=== PATIENT | female | born 1940 | race Caucasian/White ===

== ENCOUNTER 2017-11-03 14:21 | Inpatient (IN) ==
--- NOTE | 2017-11-02 16:29 | Discharge Summary ---
<Irina Tian E - Last Filed: 11/02/17 16:19> Date of Encounter: 11/02/17 - Discharge Diagnosis (1) Arthritis of left knee Priority: Primary Status: Chronic (2) Status post total left knee replacement Priority: Primary Status: Acute (3) Obesity Priority: Secondary Status: Chronic Qualifiers: Obesity type: unspecified obesity type Obesity classification: unspecified obesity classification Serious obesity comorbidity presence: unspecified whether serious comorbidity present Qualified Code(s): E66.9 - Obesity, unspecified (4) HLD (hyperlipidemia) Priority: Secondary Status: Chronic Qualifiers: Hyperlipidemia type: unspecified Qualified Code(s): E78.5 - Hyperlipidemia , unspecified (5) GERD (gastroesophageal reflux disease) Priority: Secondary Status: Chronic Qualifiers: Esophagitis presence: esophagitis presence not specified Qualified Code(s) : K21.9 - Gastro-esophageal reflux disease without esophagitis (6) Fibromyalgia Priority: Secondary Status: Chronic (7) Hypothyroidism Priority: Secondary Status: Chronic Qualifiers: Hypothyroidism type: unspecified Qualified Code(s): E03.9 - Hypothyroidism , unspecified (8) COPD (chronic obstructive pulmonary disease) Priority: Secondary Status: Chronic Qualifiers: COPD type: unspecified COPD Qualified Code(s): J44.9 - Chronic obstructive pulmonary disease, unspecified (9) ZORA (obstructive sleep apnea) Priority: Secondary Status: Chronic (10) HTN (hypertension) Priority: Secondary Status: Chronic Qualifiers: Hypertension type: unspecified Qualified Code(s): I10 - Essential (primary ) hypertension (11) History of breast cancer Priority: Secondary Status: Chronic - Hospital Course Hospital course: Ms. Ramos is a 77 year old female - Time Spent with Patient Total time spent providing and/or coordinating discharge services: - Discharge Medications Home Medications: Amitriptyline [Elavil] 10 mg PO HS 10/30/16 [History] Budesonide/Formoterol 160/4.5 [Symbicort 160/4.5] 2 puff IH BID 10/30/16 [ History] Cholecalciferol (Vitamin D3) [Vitamin D3] 2,000 unit PO BID 10/30/16 [History] Duloxetine HCl [Cymbalta] 60 mg PO DAILY 10/30/16 [History] Gabapentin [Neurontin] 300 mg PO BID 10/30/16 [History] Levothyroxine Sodium [Levoxyl] 75 mcg PO Q48H 10/30/16 [History] Losartan [Cozaar] 25 mg PO DAILY 10/30/16 [History] Omeprazole [PriLOSEC] 40 mg PO DAILY 10/30/16 [History] Aspirin Enteric Coated [Aspirin EC] 325 mg PO BID 10 Days #20 tablet. [Rx] OxyCODONE Immed Rel [Roxicodone 5 MG] 5 mg PO Q6HR PRN 7 Days #28 tablet [Rx] Calcium Carbonate [Calcium] 600 mg PO BID 11/03/17 [History] Donepezil [Aricept] 5 mg PO HS 11/03/17 [History] Levothyroxine [Synthroid] 50 mcg PO Q48H 11/03/17 [History] Lovastatin 40 mg PO HS 11/03/17 [History] Multivitamin [One Daily Multivitamin] 1 tab PO DAILY 11/03/17 [History] Allergies/Adverse Reactions: 3 Allergy/AdvReac Type Severity Reaction Status Date / Time clarithromycin [From Biaxin] AdvReac Nausea Verified 11/03/17 14:55 prednisone AdvReac Gastrointestinal Verified 11/03/17 14:55 Upset simvastatin AdvReac Cough Verified 11/03/17 14:55 Primary care physician: Jorge Luis Sharpe DO - Patient Status Disposition: Transfer Inpatient Rehab Fac Condition: Good - Discharge Instructions Follow Up With: Jorge Luis Sharpe DO [Primary Care Provider] - Additional Instructions: Discharge Instructions: Total Knee Replacement Please call [facility] ([phone]), your Primary Care Physician, or report to the Emergency Room if you have any of the following symptoms: Nausea, vomiting, fever greater that 101.5, swelling, chest pain, shortness of breath, increased pain/redness/drainage/odor for your incision site, numbness/ tingling, or any other concerning symptoms. ACTIVITY:Weight-bearing as tolerated. You may progress off support (crutches or walker) as tolerated. MEDICATIONS: Upon discharge resume your home medications. Take all the medications as prescribed. Take a stool softener if taking narcotic pain medications. Stool softeners are only effective if you drink enough fluids. Drink 6-8 glass of water or fluids a day, unless this is not allowed for another health problem. Despite using stool softeners, if you haven't had a bowel movement in 3 days, please switch to a gentle laxative. Gentle laxatives are sold over the counter. You should have a bowel movement within 24 hours, if not call the office. You will be discharged from the hospital with a prescription for pain medication. You are encouraged to decrease the use of narcotic pain medication as tolerated. Should you require a refill, please call the office. [facility] prescribes narcotic pain medication for only 4-6 weeks after surgery. If you require pain medication beyond this time period, you may be referred to your Primary Care Physician or to the Pain Clinic for further evaluation. Plan ahead for refills on pain medication as many narcotics either need to be picked up at the office or mailed. It is best to call 48-72 hours in advance of needing a prescription refill so you don't run out of medication. To help control the post-operative pain, you may take NSAIDs (Aleve,Advil, Motrin, Ibuprofen, Naprosyn) or Tylenol as prescribed on the bottle in addition to the pain medication. ANTICOAGULATION (blood thinners): Continue your Aspirin, Lovenox or Coumadin as prescribed to help prevent a blood clot in the leg or in the lungs. As long as your incision remains dry and you tolerate the NSAIDs (Aleve, Advil, Motrin, ibuprofen, naprosyn), it is OK to use the NSAIDS while you are taking your anticoagulation medication. Should your incision start to drain, stop the NSAID and contact our office. Common symptoms of blood clot in the legs include: localized pain, swelling, calf tenderness, redness or discoloration of the skin. Blood clot in the lung symptoms include: shortness of breath, rapid pulse, sweating, and chest pain that worsens with deep breathing, coughing up blood, lightheadedness, feelings of anxiety. If you experience any of these symptoms notify your physician immediately, go to the emergency room, or if having trouble breathing, call 911. WOUND CARE: Leave the dressing on for 7 to 10days. You may change the dressing if it becomes saturated greater than 50%. Do not get the dressing wet at anytime. Wash your hands with antibacterial soap, rinse and dry prior to any wound care. If you have william the visiting nurse or rehab facility can remove the stapes 10-14 days after surgery and place steri-strips across the wound. Leave the steri-strips in place until they fall off on their won. You may let water from the shower run on top of the steri-strips. If you do not have a visiting nurse or rehab facility, you will need to return to the office at 10-14 days for the william to be removed. If you have itching or redness around the dressing call the office. FOLLOW-UP: Please follow up with your surgeon in the orthopedic clinic in 4 weeks from the day of surgery. If you have william that need to be removed, you will need to come back to the office in 10-14 days from the day of surgery. <Franki Chapman - Last Filed: 11/06/17 08:48> Orders not resulted at time of discharge: Pending orders 11/03/17 01:00 XR knee LT limited 1-2V [XR] Routine Hemoglobin and Hematocrit [HEME] Routine Date of Encounter: 11/06/17 Time of Encounter: 08:40 - Discharge Diagnosis (1) Obesity (BMI 35.0-39.9 without comorbidity) Priority: Secondary Status: Chronic (2) Bilateral sacroiliitis Priority: Secondary Status: Chronic (3) Arthritis of left knee Priority: Primary Status: Chronic (4) Status post total left knee replacement Priority: Primary Status: Acute (5) HLD (hyperlipidemia) Priority: Secondary Status: Chronic Qualifiers: Hyperlipidemia type: unspecified Qualified Code(s): E78.5 - Hyperlipidemia , unspecified (6) GERD (gastroesophageal reflux disease) Priority: Secondary Status: Chronic Qualifiers: Esophagitis presence: esophagitis presence not specified Qualified Code(s) : K21.9 - Gastro-esophageal reflux disease without esophagitis (7) Fibromyalgia Priority: Secondary Status: Chronic (8) Hypothyroidism Priority: Secondary Status: Chronic Qualifiers: Hypothyroidism type: unspecified Qualified Code(s): E03.9 - Hypothyroidism , unspecified (9) COPD (chronic obstructive pulmonary disease) Priority: Secondary Status: Chronic Qualifiers: COPD type: unspecified COPD Qualified Code(s): J44.9 - Chronic obstructive pulmonary disease, unspecified (10) ZORA (obstructive sleep apnea) Priority: Secondary Status: Chronic (11) HTN (hypertension) Priority: Secondary Status: Chronic Qualifiers: Hypertension type: unspecified Qualified Code(s): I10 - Essential (primary ) hypertension (12) History of breast cancer Priority: Secondary Status: Chronic (13) Tachycardia Priority: Primary Status: Acute - Hospital Course Hospital course: Ms. Ramos is a 77 year old female Status post left total knee replacement, patient evaluated for postoperative tachycardia started on Lopressor by cardiology. The patient had an uneventful postoperative course. They received antibiotics and physical therapy and were discharged in stable condition. There will follow -up in the office in 2 weeks. - Time Spent with Patient Total time spent providing and/or coordinating discharge services: Primary care physician: Jorge Luis Sharpe DO - Patient Status Functional capacity at discharge: uses cane/walker Overall status at discharge: patient is progressing back to baseline
--- NOTE | 2017-11-02 16:36 | Physician Discharge Referral ---
ExtendedCare Referral Info Transfer To: [facility] Provider in Charge: Dr Chapman - Diagnosis (1) Arthritis of left knee Priority: Primary Status: Chronic (2) Status post total left knee replacement Priority: Primary Status: Acute (3) Obesity Priority: Secondary Status: Chronic (4) HLD (hyperlipidemia) Priority: Secondary Status: Chronic (5) GERD (gastroesophageal reflux disease) Priority: Secondary Status: Chronic (6) Fibromyalgia Priority: Secondary Status: Chronic (7) Hypothyroidism Priority: Secondary Status: Chronic (8) COPD (chronic obstructive pulmonary disease) Priority: Secondary Status: Chronic (9) ZORA (obstructive sleep apnea) Priority: Secondary Status: Chronic (10) HTN (hypertension) Status: Chronic (11) History of breast cancer Priority: Secondary Status: Chronic Expected Duration of Placement: less than 30 days Prognosis: Good Aware of Diagnosis: Patient Aware of Prognosis: Patient - Transfer Medications Prescriptions: OxyCODONE Immed Rel [Roxicodone 5 MG] 5 mg PO Q6HR PRN 7 Days #28 tablet PRN Reason: Severe Pain Aspirin Enteric Coated [Aspirin EC] 325 mg PO BID 10 Days #20 tablet.dr Kwan Medications: Amitriptyline [Elavil] 10 mg PO 10/30/16 [History] Budesonide/Formoterol 160/4.5 [Symbicort 160/4.5] 10/30/16 [History] Cholecalciferol (Vitamin D3) [Vitamin D] 2,000 unit PO 10/30/16 [History] Doxycycline Hyclate 20 mg PO 10/30/16 [History] Duloxetine HCl [Cymbalta] 60 mg PO 10/30/16 [History] Gabapentin [Neurontin] 300 mg PO 10/30/16 [History] Levothyroxine Sodium [Levoxyl] 75 mcg PO 10/30/16 [History] Lorcaserin HCl [Belviq] 10 mg PO 10/30/16 [History] Losartan [Cozaar] 25 mg PO 10/30/16 [History] Lovastatin [Altoprev] 40 mg PO 10/30/16 [History] Omeprazole [PriLOSEC] 40 mg PO DAILY 10/30/16 [History] Aspirin Enteric Coated [Aspirin EC] 325 mg PO BID 10 Days #20 tablet. [Rx] OxyCODONE Immed Rel [Roxicodone 5 MG] 5 mg PO Q6HR PRN 7 Days #28 tablet [Rx] Allergies/Adverse Reactions: 3 Allergy/AdvReac Type Severity Reaction Status Date / Time clarithromycin [From Biaxin] Allergy Nausea Verified 10/13/17 13:51 prednisone Allergy Gastrointestinal Verified 10/13/17 13:51 Upset simvastatin Allergy Cough Verified 10/13/17 13:51 - Respiratory Orders Smoking Cessation: Smoking cessation has been advised. For more information, call the [place] Tobacco Quit Line at 7-239-APFJ-NOW. - Ancillary Orders May use pressure relief devices daily prn, May go on NICKI w/family/respon alliance party w /meds at nurse discretion PRN, May consult with Dentist, Fruit Packer, Boat Canvas Installer PRN - Mobility Orders Chair, Ambulate - Rehabiliation Orders Rehab Potential: Good Rehab Orders: Evaluation for Physical Therapy, Evaluation for Occupational Therapy Other: Total Knee replacement Precautions x 6 weeks Apply cold therapy wrap 3-6x/day for 20 minutes at a time. Encourage ambulation throughout the day and incentive spirometer 10x/hour. Elevate affected extremity above heart as tolerated. Brace: Wear knee immobilizer at night x 2 weeks. - Treatments Skin tear care topically daily PRN per policy List/Other: Opsite placed. Keep dressing intact until first follow up appointment. If > 50% saturated, notify office, remove dressing and place appropriate dressing back in place. Leave Zipline intact. Opsite dressing is water resistant, not water- proof. OK to shower, but do not get dressing wet. - Diet Orders Regular CERTIFICATION: I certify that the transfer of the above named patient to an Extended Care Facility is necessary for the continuing treatment of the diagnosis listed. The above information is true and accurate reflection of patient's current condition. Confidential - Redisclosure prohibited without a patient's written consent.
--- NOTE | 2017-11-03 12:27 | Anesthesia Evaluation PreOp ---
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: Denies Any Significant HX Other Medical History: Thyroid, GERD, Other (H/O left breast CA S/P lumpectomy S /P chemo/XRT) Anesthesia History: No Prior Anesthetic Complications, Past Anesthesia Alcohol Use: occasionally Drug use: none Medications and Allergies Amitriptyline [Elavil] 10 mg PO HS 10/30/16 [History] Budesonide/Formoterol 160/4.5 [Symbicort 160/4.5] 2 puff IH BID 10/30/16 [ History] Cholecalciferol (Vitamin D3) [Vitamin D3] 2,000 unit PO BID 10/30/16 [History] Duloxetine HCl [Cymbalta] 60 mg PO DAILY 10/30/16 [History] Gabapentin [Neurontin] 300 mg PO BID 10/30/16 [History] Levothyroxine Sodium [Levoxyl] 75 mcg PO Q48H 10/30/16 [History] Losartan [Cozaar] 25 mg PO DAILY 10/30/16 [History] Omeprazole [PriLOSEC] 40 mg PO DAILY 10/30/16 [History] Aspirin Enteric Coated [Aspirin EC] 325 mg PO BID 10 Days #20 tablet. [Rx] OxyCODONE Immed Rel [Roxicodone 5 MG] 5 mg PO Q6HR PRN 7 Days #28 tablet [Rx] Calcium Carbonate [Calcium] 600 mg PO BID 11/03/17 [History] Donepezil [Aricept] 5 mg PO HS 11/03/17 [History] Levothyroxine [Synthroid] 50 mcg PO Q48H 11/03/17 [History] Lovastatin 40 mg PO HS 11/03/17 [History] Multivitamin [One Daily Multivitamin] 1 tab PO DAILY 11/03/17 [History] 3 Allergy/AdvReac Type Severity Reaction Status Date / Time clarithromycin [From Biaxin] AdvReac Nausea Verified 11/03/17 14:55 prednisone AdvReac Gastrointestinal Verified 11/03/17 14:55 Upset simvastatin AdvReac Cough Verified 11/03/17 14:55 - Meds/Allergy Pre-op Review Medications Reviewed: Yes Allergies Reviewed: Yes Beta Blockers on Current Med List: No Anesthesia Results - Labs Laboratory Tests 10/13/17 10/13/17 10/13/17 14:15 14:15 14:15 WBC 10.4 Hgb 13.6 Hct 43.4 Plt Count 297 PT 10.6 INR 1.0 APTT 28.2 Sodium 138 Potassium 4.1 BUN 18 Creatinine 0.79 - Imaging EKG: report reviewed (10/13/2017 SINUS RHYTHM Left axis deviation POOR R WAVE PROGRESSION) Additional studies: 12/2012 Echo report from [facility] echocardiogram unremarkable with EF 55-60% 06/2012 Echo report from [facility] echocardiogram unremarkable with EF 55-60% Anesthesia Exam O2 Sat Height 1.61 m Height 1.61 m Weight 92.079 kg Weight 92.079 kg O2 Sat by Pulse Oximetry 92 Vital Signs Temp Pulse Resp BP Pulse Ox 98.2 F 91 18 135/67 92 11/03/17 15:25 11/03/17 15:25 11/03/17 15:25 11/03/17 15:25 11/03/17 15:25 Height: 5'3.5" Weight: 203 lbs NPO (# of Hours): 8 Pain Scale: 0 Pain Scale Used: Numeric (1 - 10) - HEENT Pupil (Motor): EOMI Mallampati: II Teeth: Normal Oral Opening: Greater than 3 - HEAT AND FROST INSULATOR HELPER LOC: Oriented HEAT AND FROST INSULATOR HELPER Motor: Normal RUE, Normal LUE, Normal RLE, Normal LLE, Normal Face HEAT AND FROST INSULATOR HELPER Sensory: Normal: LUE, RLE, LLE, Face, Deficit: RUE - Cardiac Rhythm: Regular Murmur: None - Pulmonary Breath Sounds: bilateral Clear Respiratory Effort: Symmetrical Anesthesia Assess/Plan ASA Score: 3 Modified Mcguffey Scale for Level of Consciousness: Cooperative, oriented, and tranquil Anesthetic Plan: General, Regional Monitoring Plan: Standard Monitors Recovery Plan: PACU
[~2017-11-03 14:21] MED LIST: CeFAZolin Premix DUPLEX 2,000 MG/50 ML BAG IVPB SCH
[2017-11-03] MEDS ORDERED: Albuterol 2.5 MG/3 ML NEBULIZER IH ONE (15:14)
[2017-11-03] MEDS ORDERED: CeFAZolin Syr 2,000MG/20 ML 2,000 MG/20 ML SYRINGE IVPB ONE (15:14)
[2017-11-03] MEDS ORDERED: Ringers Solution, Lactated 1,000 ML IVC SCH ×2 (15:15→20:04)
--- NOTE | 2017-11-03 15:27 | History & Physical Report ---
Date of Encounter: 11/03/17 Time of Encounter: 15:26 24 Hour HP Update - Instructions Instructions: If the History and Physical is less than 30 days old and was completed prior to A.M. admission and or procedure and has NOT been updated on calendar day of procedure please complete this update prior to performing procedure. - Update Patient reports changes in Medical Condition: No Changes in examination, assessment, or condition: No Changes in Medication: No Preop tests/diagnostics Reviewed: Yes Surgery Remains Indicated: Yes Consent for Planned Operative Procedure(s) Verified: Yes - Pre-Operative Checklist Preoperative Checklist Indicated: No Prophylactic Antibiotic Ordered: Yes Is VTE Prophylaxis Indicated?: Yes
[2017-11-03] MEDS ORDERED: *HR* Propofol 200 MG/20 ML VIAL IVP ONE ×2 (16:28→16:29)
[2017-11-03] MEDS ORDERED: *HR* FentaNYL (PF) 100 MCG/2 ML VIAL ONE (16:30)
[2017-11-03] MEDS ORDERED: *HR* Midazolam HCl 2 MG/2 ML VIAL ONE (16:30)
[2017-11-03] MEDS ORDERED: Ethanol\\Acetic Acid\\Na Ace\\Ben 1,000 ML IRRIG.SOLN IR ONE (16:50)
[2017-11-03] MEDS ORDERED: Bupivacaine/Clonidine Syringe 1 EACH SYRINGE ONE (17:05)
[2017-11-03] MEDS ORDERED: ROPIVACAINE HCL/PF 0.5% 30 ML VIAL ONE (17:05)
[2017-11-03] MEDS ORDERED: *HR* Morphine Sulfate/PF 10 MG/10 ML AMPUL ONE (17:11)
--- NOTE | 2017-11-03 17:29 | Anesthesia Procedures ---
Date of Encounter: 11/03/17 Time of Encounter: 17:27 Procedures: Anesthesia - Epidural/Spinal Patient examined: Yes Consent Obtained: Yes Supplemental Oxygen: Nasal Cannula Supplemental Oxygen Rate (L/min): 3 Sedation: Versed (mg): 2 Sedation: Fentanyl (mcg): 100 Site Prep: Aseptic Technique, Sterile prep and drape, 0.5% Chlorhexidine/Alcohol Patient position: upright Local Anesthetic: Lidocaine 1% Amount of Local Anesthetic used: 4 Interspace Used: L2-L3 Loss of Resistance (PATIENCE): No Blood: No CSF: Yes Paresthesia: No Spinal Needle Gauge: 25 Spinal Dose: marcaine 12mg, duramorph 0.2 Procedure: aseptic, nadir well, effective Vitals + FHT's: Vital Signs/O2 Sat, Most Current Temp Pulse Resp BP Pulse Ox 98.2 F 97 18 142/75 95 11/03/17 15:25 11/03/17 17:03 11/03/17 15:25 11/03/17 17:03 11/03/17 17:03 - Nerve Block Procedure Date: 11/03/17 Time: 17:29 Pre-op Diagnosis: arthritis, L knee Checklist: Correct Patient Identifier Correct side: Left Blood Thinner: No Monitor Applied: EKG, BP, Pulse Oximetry Supplemental Oxygen via Nasal Cannula (L/min): 3 Indication: Post Op Analgesia Pre-op Neuro Deficits: No Block Type: Femoral, Other (IPAK) Catheter placed: No Sterile Technique: Yes Ultrasound used: Yes Anatomy identified: Yes Visual spread of Local: Yes Neuro Stimulation: No Blood on Needle Aspiration: No Smooth Injection of Local: Yes Pain with Injection of Local: No Prep: Chlorhexadine Needle: 22 x 50 mm Stimuplex, 21 x 100 mm Stimuplex Local: 0.25% Bupivicaine w/Clonidine 20 mcg/cc, Ropivacaine (20cc 0.5) Volume (cc): 20 fem 20 ipak Number of Attempts: 1 Complications: None/effective block Vitals: Vital Signs/O2 Sat, Most Current Temp Pulse Resp BP Pulse Ox 98.2 F 97 18 142/75 95 11/03/17 15:25 11/03/17 17:03 11/03/17 15:25 11/03/17 17:03 11/03/17 17:03 Comments: asepptic tolerated well, no complications
[2017-11-03] MEDS ORDERED: Ondansetron 4 MG/2 ML VIAL IVP PRN ×2 (17:48→20:04)
[2017-11-03] MEDS ORDERED: Naloxone 0.4 MG/ML INJ IVP PRN ×2 (17:48→20:04)
[2017-11-03] MEDS ORDERED: *HR* Enoxaparin 30 MG/0.3 ML SYRINGE SQ SCH (18:00)
--- NOTE | 2017-11-03 18:04 | Orthopedic Operative Note ---
Date of procedure: 11/03/17 Pre-op diagnosis: Left knee arthritis Post-op diagnosis: same Procedure: Procedure: Left Total knee replacement Estimated blood loss: 200 cc Hardware: Metal and polyethylene replacement. Arthrex Femur: 3 Tibia: 3 PS insert: 12 Patella: 34 Exam Under anesthesia: Full flexion and extension no instability Procedural Notes: Grade 3 changes medial compartment and patellofemoral joint Operative procedure: The patient was brought to the operating room and placed on the operating room table. After general anesthesia was administered the operative knee was examined. Findings were noted in the exam under anesthesia. The operative extremity was prepped and draped in sterile surgical fashion. The patient received IV antibiotics prior to skin incision. A standard midline incision was made centered over the patella. The incision was made through the skin and subcutaneous tissue. A medial parapatellar tendon approach was performed. Care was taken to preserve tissue along the medial aspect of the patella. And to protect the patella tendon. The deep MCL was released off the medial tibia. The infra patella fat pad was excised. Knee was brought into flexion. Patient noted to have grade 3 changes medial compartment patellofemoral joint. The entry hole was made for the intramedullary femoral guide. The guide was seated in 6 degrees of valgus. Anterior cut was made followed by the distal cut. The ACL the PCL the medial and the lateral menisci were excised. The tibia was subluxed forward. The entry hole was made for the intramedullary tibial guide. Guide was seated to resect 2 mm off the more abnormal side. The knee was brought into flexion the distal femur was sized to a 3. The femoral guide was seated, the anterior cut was made followed by the posterior condylar cut, followed by the chamfer cuts. The finishing guide was seated the box cut was made and the lug holes were drilled. The tibia was sized to a 3, the tibial tray was seated and prepared with the large drill followed by the fin cutter. Trial reduction revealed full extension no varus valgus instability with the appropriate 12 PS Lilibeth. The patella was everted and cut was made at the level of the insertion of the quadriceps and patella tendon. The patella was sized 34 the guide was seated and the lug holes are drilled. Trial reduction revealed excellent patella tracking. All trial components were removed all bony surfaces were irrigated. The tibia was cemented first followed by the femur. The 12 PS Lilibeth was seated and the knee was brought into full extension. The patella was cemented and held in place with the patellar holding clamp. After the cement had hardened, the knee sat for 2 minutes with a antibacterial solution. The knee was then irrigated out with 2 L of pulse irrigation. The extensor mechanism was closed with #2 FiberWire suture and #2 PDS suture. The subcutaneous tissue was then irrigated and closed deep with #1 PDS suture superficially with 0 PDS suture and skin was closed with skin william. The patient was then placed in a sterile dressing and a postoperative brace extubated and transferred to recovery room in stable condition. Anesthesia: spinal Surgeon: Franki Chapman Was there an equity sales assistant present: Yes Flight Engineer Inspector: Irina Tian Estimated blood loss (cc): 200 Condition: stable Disposition: PACU
[2017-11-03] MEDS ORDERED: *HR* PHENYLEPHRINE 1,000 MCG/10 ML SYRINGE IVP ONE (18:15)
--- NOTE | 2017-11-03 19:03 | Anesthesia Evaluation Post Op ---
Date of Encounter: 11/03/17 Time of Encounter: 19:24 - Discharge PostOp Status: Transfer Patient to floor (Patient's vital signs have been reviewed. Patient is stable postoperatively and has adequately recovered from anesthesia, unless otherwise noted. Patient is determined to have stable airway patency and respiratory function including respiratory rate and oxygen saturation. Patient has a stable heart rate, blood pressure and adequate hydration. Patients mental status is acceptable. Patients temperature is appropriate. Pain and nausea are adequately controlled.)
[2017-11-03 19:40] LABS: Hematocrit 37.6 % (35.3-44.9); Hemoglobin 11.8 g/dL (11.5-15.4)
[2017-11-03] MEDS ORDERED: Temazepam 15 MG CAPSULE PO PRN (20:04)
[2017-11-03] MEDS ORDERED: MOM Conc 10 ML UD.LIQ PO PRN (20:04)
[2017-11-03] MEDS ORDERED: CeFAZolin Premix DUPLEX 2,000 MG/50 ML BAG IVPB SCH ×2 (20:04→23:00)
[2017-11-03] MEDS ORDERED: Sennosides 8.6 MG TABLET PO PRN (20:04)
[2017-11-03] MEDS ORDERED: traMADol 50 MG TABLET PO PRN (20:04)
[2017-11-03] MEDS ORDERED: *HR* OxyCODONE/APAP 5/325 TABLET PO PRN (20:04)
[2017-11-03] MEDS: Budesonide/Formoterol 160/4.5 MDI IH SCH (22:52)
[2017-11-04] MEDS: Cholecalciferol (D-3) 1,000 UNIT TABLET PO SCH ×3 (00:34→20:24)
[2017-11-04] MEDS: Gabapentin 300 MG CAPSULE PO SCH ×3 (00:35→20:23)
[2017-11-04] MEDS: CeFAZolin Premix DUPLEX 2,000 MG/50 ML BAG IVPB SCH ×2 (03:14→10:14)
[2017-11-04] MEDS: *HR* OxyCODONE Immed Rel 5 MG TABLET PO PRN ×3 (06:15→14:31)
[2017-11-04 07:13] LABS: BUN/Creatinine Ratio 23 (6-26); Blood Urea Nitrogen 17 mg/dL (8-23); Calcium 8.7 mg/dL (8.6-10.3); Carbon Dioxide 30 mEq/L (23-29); Chloride 100 mEq/L (98-107); Glucose 156 mg/dL (70-105); Osmolality,Calculated 287 (280-300); Sodium 136 mEq/L (136-145); eGFR For African Americans > 60 (> 60); eGFR For Non-African Americans > 60 (> 60)
--- NOTE | 2017-11-04 07:13 | Orthopedics Progress Note ---
Date of Encounter: 11/04/17 Time of Encounter: 07:08 - Assessment and Plan (1) Obesity (BMI 35.0-39.9 without comorbidity) Current Visit: Yes Status: Chronic (2) Bilateral sacroiliitis Current Visit: No Status: Chronic (3) Arthritis of left knee Current Visit: No Status: Chronic (4) Status post total left knee replacement Current Visit: No Status: Acute (5) HLD (hyperlipidemia) Current Visit: No Status: Chronic Qualifiers: Hyperlipidemia type: unspecified Qualified Code(s): E78.5 - Hyperlipidemia , unspecified (6) GERD (gastroesophageal reflux disease) Current Visit: No Status: Chronic Qualifiers: Esophagitis presence: esophagitis presence not specified Qualified Code(s) : K21.9 - Gastro-esophageal reflux disease without esophagitis (7) Fibromyalgia Current Visit: No Status: Chronic (8) Hypothyroidism Current Visit: No Status: Chronic Qualifiers: Hypothyroidism type: unspecified Qualified Code(s): E03.9 - Hypothyroidism , unspecified (9) COPD (chronic obstructive pulmonary disease) Current Visit: No Status: Chronic Qualifiers: COPD type: unspecified COPD Qualified Code(s): J44.9 - Chronic obstructive pulmonary disease, unspecified (10) ZORA (obstructive sleep apnea) Current Visit: No Status: Chronic (11) HTN (hypertension) Current Visit: No Status: Chronic Qualifiers: Hypertension type: unspecified Qualified Code(s): I10 - Essential (primary ) hypertension (12) History of breast cancer Current Visit: No Status: Chronic Subjective Interval history: Patient was seen this morning doing well without complaints. Afebrile vital signs stable. Operative extremity: Neurovascularly intact Dressing clean dry and intact Calves nontender Assessment and plan: Continue with postoperative care Hematocrit 37 Objective Vital signs: Vital Signs Temp Pulse Resp BP Pulse Ox 11/04/17 06:28 98.3 F 104 18 121/74 93 11/04/17 03:37 97.7 F 89 16 126/73 96 11/03/17 23:00 98.2 F 80 16 115/65 96 11/03/17 22:00 98.1 F 75 18 115/68 96 11/03/17 21:00 97.8 F 78 16 120/75 96 11/03/17 20:30 97.8 F 78 16 96 11/03/17 20:03 97.6 F 88 16 125/74 96 11/03/17 19:19 97.1 F L 74 16 132/66 97 11/03/17 19:04 97.2 F L 75 16 116/59 97 11/03/17 18:54 76 16 94/60 98 11/03/17 18:44 84 16 118/54 95 11/03/17 18:34 98.4 F 77 16 112/53 99 11/03/17 17:03 97 142/75 95 11/03/17 15:25 98.2 F 91 18 135/67 92 Intake and Output 11/03/17 11/03/17 11/04/17 15:59 23:59 07:59 Intake Total 350 / 350 Output Total 200 / 200 350 / 350 Balance -200 / -200 0 / 0 Intake: Oral 350 / 350 Output: Urine 350 / 350 Estimated Blood Loss 200 / 200 Other: # Voids 1 # Urine Diapers 1 Weight 92.079 kg 113.2 kg Patient Weight 11/04/17 23:59 Weight 113.2 kg - Labs CBC & BMP: 11/03/17 18:58 - VTE Documentation of Mechanical Device: Venous foot pump, device Consult Discharge Plan - Plan Referrals: Jorge Luis Sharpe DO [Primary Care Provider] -
[2017-11-04] MEDS: Budesonide/Formoterol 160/4.5 MDI IH SCH ×2 (07:26→22:19)
[2017-11-04 07:49] LABS: Hematocrit 37.4 % (35.3-44.9); Hemoglobin 11.8 g/dL (11.5-15.4)
[2017-11-04] MEDS: Multivit/Ca/Min/Fe/FA 1 TAB TABLET PO SCH (08:36)
[2017-11-04] MEDS: *HR* Enoxaparin 30 MG/0.3 ML SYRINGE SQ SCH ×2 (08:53→18:47)
--- NOTE | 2017-11-04 17:14 | Event Note ---
Date of Encounter: 11/04/17 Time of Encounter: 13:20 PCR- POD#1 L TKR Chapman 11/03/17 PCR - Patient seen at bedside. Labwork and medications reviewed. Pain control: Adequate - states that her pain is right in knee cap - she states this is not as painful as her shoulder replacement was. No calf tenderness. Neurovascualrly intact. Participating in PT. All questions and concerns addressed. Educated on use of incentive spirometer, ambulation, and hydration. Patient educated on post-operative restrictions and care. Addressed: see above. D/C plan: ECF
--- NOTE | 2017-11-04 17:15 | Event Note ---
Date of Encounter: 11/04/17 Time of Encounter: 17:14 Notified by nurse that patient's leg is red and swollen with pain. Stat doppler ordered. Notified by nurse that patient is tachycardic. EKG obtained showing per nursing A Flutter and tachycardia with RVR. Vitals otherwise stable. Consult to Hospitalist and Cardiology for management.
--- NOTE | 2017-11-04 17:54 | Event Note ---
Date of Encounter: 11/04/17 Time of Encounter: 17:53 S/w Dr. Box - states he will evaluate. Given abnl EKG and no history along with mild tachycardia will start per Dr. Box Lopressor 25mg BID
--- NOTE | 2017-11-04 19:59 | Internal Medicine Consult Note ---
Date of Encounter: 11/04/17 Time of Encounter: 19:54 - Assessment and Plan (1) Tachycardia Current Visit: Yes Status: Acute Assessment and plan: We will control pain. Aggressive incentive spirometry Check electrolytes such as magnesium and potassium. Check thyroid function tests Repeat EKG in the morning I see that she has already been started on a beta lyndsay low-dose 25 metoprolol twice a day by primary service. We will continue that. To avoid low blood pressure I would hold home losartan dose for now Monitor vitals such as temperature and hospital course. Further management and treatment pending further data points (2) Status post total left knee replacement Current Visit: No Status: Acute Assessment and plan: Management per orthopedic surgery (3) Hypothyroidism Current Visit: No Status: Chronic Assessment and plan: Synthroid Qualifiers: Hypothyroidism type: unspecified Qualified Code(s): E03.9 - Hypothyroidism , unspecified (4) COPD (chronic obstructive pulmonary disease) Current Visit: No Status: Chronic Assessment and plan: Baseline Qualifiers: COPD type: unspecified COPD Qualified Code(s): J44.9 - Chronic obstructive pulmonary disease, unspecified (5) ZORA (obstructive sleep apnea) Current Visit: No Status: Chronic Assessment and plan: Nocturnal CPAP (6) Obesity (BMI 35.0-39.9 without comorbidity) Current Visit: Yes Status: Chronic Assessment and plan: Education Internal Medicine - CN: HPI - Data of Consult Requesting Physician: Franki Chapman MD - Consult Narrative Reason for consult: Tachycardic rhythm History of present illness: Ms. Ramos is a 77 year old female who is here for a left total knee replacement by Dr. Chapman 11/03 who developed tachycardia this evening. Consult to evaluate. EKG personally reviewed with automated read suggesting AFlutter/Tachycardia. On review of patient's medical condition, she denies history of irregular heart rhythm or cardiac issues. 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 She has sleep apnea and uses CPAP at home. She does have a history of hypothyroidism on Synthroid replacement. On review of symptoms she denies any shortness of breath or symptomatic tachycardia. She however is complaining of pain along her left leg postoperatively. She had a low-grade temperature of 100.1 but on specific review did not suggest any focus of infection. I had communicated with the nurse to call me if she develops persistent low-grade temp of fever. On review of EKG personally. Rate of 110. Regular rhythm. Demonstrated P waves, narrow QRS followed by T waves. I suspect this is sinus tachycardia Past Med Surg Social Fam HX - Past Medical History Medical history: arthritis, COPD, fibromyalgia, hyperlipidemia, hypertension Psychiatric history: no psych history - Past Surgical History Surgical History: cholecystectomy, hysterectomy - Social History Smoking Status: Former smoker Packs per day: Quit in 1964 Smokeless Tobacco Status: No Alcohol use: occasionally Drug use: none - Family History Sister Hx Family Cancer: Yes (Breast cancer) Review of systems: ROS 14 point review of systems reviewed as best as possible given presentation. Pertinent positive or negative as per HPI or otherwise reviewed as negative Internal Medicine - CN: Meds Amitriptyline [Elavil] 10 mg PO HS 10/30/16 [History] Budesonide/Formoterol 160/4.5 [Symbicort 160/4.5] 2 puff IH BID 10/30/16 [ History] Cholecalciferol (Vitamin D3) [Vitamin D3] 2,000 unit PO BID 10/30/16 [History] Duloxetine HCl [Cymbalta] 60 mg PO DAILY 10/30/16 [History] Gabapentin [Neurontin] 300 mg PO BID 10/30/16 [History] Levothyroxine Sodium [Levoxyl] 75 mcg PO Q48H 10/30/16 [History] Losartan [Cozaar] 25 mg PO DAILY 10/30/16 [History] Omeprazole [PriLOSEC] 40 mg PO DAILY 10/30/16 [History] Aspirin Enteric Coated [Aspirin EC] 325 mg PO BID 10 Days #20 tablet. [Rx] OxyCODONE Immed Rel [Roxicodone 5 MG] 5 mg PO Q6HR PRN 7 Days #28 tablet [Rx] Calcium Carbonate [Calcium] 600 mg PO BID 11/03/17 [History] Donepezil [Aricept] 5 mg PO HS 11/03/17 [History] Levothyroxine [Synthroid] 50 mcg PO Q48H 11/03/17 [History] Lovastatin 40 mg PO HS 11/03/17 [History] Multivitamin [One Daily Multivitamin] 1 tab PO DAILY 11/03/17 [History] 3 Allergy/AdvReac Type Severity Reaction Status Date / Time clarithromycin [From Biaxin] AdvReac Nausea Verified 11/03/17 14:55 prednisone AdvReac Gastrointestinal Verified 11/03/17 14:55 Upset simvastatin AdvReac Cough Verified 11/03/17 14:55 Internal Medicine - CN: Exam - Constitutional Vitals: Temp Pulse Resp BP Pulse Ox 99.6 F 124 20 137/51 97 11/04/17 19:50 11/04/17 19:50 11/04/17 19:50 11/04/17 19:50 11/04/17 19:50 Exam: General - AAO x 3 Psych - Appropriate affect/speech. No agitation Eyes - FERCHO. Eye lids intact. No scleral icterus Heart - Sinus acute cardia. RRR. S1 and S2 present. Systolic murmurs appreciated. No elevated JVD appreciated. Lung - Adequate air entry b/l, No crackles/wheezes appreciated GI - Soft, non-tender. No hepatosplenomegaly/ascites. BS+ - No CVA/suprapubic tenderness or palpable bladder distension Skin - Intact. No rash/petechiae/ecchymosis. Warm extremities MSK - left leg in a brace Internal Medicine - CN: Reslt - Labs CBC & Chem 7: 11/04/17 06:27 11/04/17 06:27 Labs: Short CBC 11/04/17 Range/Units 06:27 Hgb 11.8 (11.5-15.4) g/dL Hct 37.4 (35.3-44.9) % BMP 11/04/17 06:27 Sodium 136 Potassium 4.0 Chloride 100 Carbon Dioxide 30 H BUN 17 Creatinine 0.75 Glucose 156 H Calcium 8.7 Consult Discharge Plan - Plan Referrals: Jorge Luis Sharpe DO [Primary Care Provider] -
[2017-11-05] MEDS: *HR* OxyCODONE Immed Rel 5 MG TABLET PO PRN ×4 (02:26→21:16)
[2017-11-05] MEDS: *HR* Enoxaparin 30 MG/0.3 ML SYRINGE SQ SCH ×2 (06:11→19:01)
[2017-11-05 07:21] LABS: Hematocrit 34.3 % (35.3-44.9); Hemoglobin 11.1 g/dL (11.5-15.4)
[2017-11-05] MEDS: Cholecalciferol (D-3) 1,000 UNIT TABLET PO SCH ×2 (08:20→21:11)
[2017-11-05] MEDS: Multivit/Ca/Min/Fe/FA 1 TAB TABLET PO SCH (08:20)
[2017-11-05] MEDS: Gabapentin 300 MG CAPSULE PO SCH ×2 (08:20→21:12)
[2017-11-05] MEDS: Budesonide/Formoterol 160/4.5 MDI IH SCH ×2 (08:24→20:24)
--- NOTE | 2017-11-05 09:51 | Orthopedics Progress Note ---
Date of Encounter: 11/05/17 Time of Encounter: 09:50 - Assessment and Plan (1) Obesity (BMI 35.0-39.9 without comorbidity) Current Visit: Yes Status: Chronic (2) Bilateral sacroiliitis Current Visit: No Status: Chronic (3) Arthritis of left knee Current Visit: No Status: Chronic (4) Status post total left knee replacement Current Visit: No Status: Acute (5) HLD (hyperlipidemia) Current Visit: No Status: Chronic Qualifiers: Hyperlipidemia type: unspecified Qualified Code(s): E78.5 - Hyperlipidemia , unspecified (6) GERD (gastroesophageal reflux disease) Current Visit: No Status: Chronic Qualifiers: Esophagitis presence: esophagitis presence not specified Qualified Code(s) : K21.9 - Gastro-esophageal reflux disease without esophagitis (7) Fibromyalgia Current Visit: No Status: Chronic (8) Hypothyroidism Current Visit: No Status: Chronic Qualifiers: Hypothyroidism type: unspecified Qualified Code(s): E03.9 - Hypothyroidism , unspecified (9) COPD (chronic obstructive pulmonary disease) Current Visit: No Status: Chronic Qualifiers: COPD type: unspecified COPD Qualified Code(s): J44.9 - Chronic obstructive pulmonary disease, unspecified (10) ZORA (obstructive sleep apnea) Current Visit: No Status: Chronic (11) HTN (hypertension) Current Visit: No Status: Chronic Qualifiers: Hypertension type: unspecified Qualified Code(s): I10 - Essential (primary ) hypertension (12) History of breast cancer Current Visit: No Status: Chronic Subjective Principal diagnosis: Patient was seen this morning doing well without complaints. Interval history: Patient was seen this morning doing well without complaints. Afebrile vital signs stable. Operative extremity: Neurovascularly intact Dressing clean dry and intact Calves nontender Assessment and plan: Continue with postoperative care Objective Vital signs: Vital Signs Temp Pulse Resp BP Pulse Ox 11/05/17 08:25 16 90 11/05/17 06:40 98.4 F 78 16 129/67 96 11/05/17 04:56 98.7 F 73 18 127/71 94 11/04/17 23:24 99.5 F 102 18 162/79 93 11/04/17 22:20 16 95 11/04/17 19:50 99.6 F 124 20 137/51 97 11/04/17 15:12 100.1 F H 116 18 126/64 93 03/20/18 10:57 97.6 F 87 18 138/74 93 Intake and Output 11/04/17 11/05/17 11/05/17 23:59 07:59 15:59 Intake Total 420 / 420 Output Total 250 / 250 Balance 170 / 170 Intake: Oral 420 / 420 Output: Urine 250 / 250 Other: Meal Dinner Percent of Meal Consumed 25% # Voids 1 1 - Labs CBC & BMP: 11/05/17 06:36 11/05/17 06:36 Labs: Abnormal lab results Hgb 11.1 g/dL (11.5-15.4) L 11/05/17 06:36 Hct 34.3 % (35.3-44.9) L 11/05/17 06:36 - VTE Documentation of Mechanical Device: Venous foot pump, device Consult Discharge Plan - Plan Referrals: Jorge Luis Sharpe DO [Primary Care Provider] -
[2017-11-05 09:56] LABS: BUN/Creatinine Ratio 17 (6-26); Blood Urea Nitrogen 11 mg/dL (8-23); Calcium 9.1 mg/dL (8.6-10.3); Carbon Dioxide 28 mEq/L (23-29); Chloride 96 mEq/L (98-107); Glucose 152 mg/dL (70-105); Magnesium 1.7 mg/dL (1.6-2.6); Osmolality,Calculated 274 (280-300); Potassium 3.8 mEq/L (3.5-5.1); Sodium 131 mEq/L (136-145); eGFR For African Americans > 60 (> 60); eGFR For Non-African Americans > 60 (> 60)
--- NOTE | 2017-11-05 10:03 | Cardiology Consult Note ---
Date of Encounter: 11/05/17 Time of Encounter: 10:03 Assessment and Plan (1) Tachycardia Current Visit: Yes Status: Acute Patient had sinus tachycardia yesterday evening in setting of s/p total left knee replacement 11/03/2017. EKG automated read was atrial flutter tachycardia with RVR. Denied chest pain, feeling palpitations, diaphoresis, nausea, syncope. Hx scarlet fever with murmur since. No other hx of heart disease. Echo 5yr ago for breast cancer and was normal. EKG 11/04/2017: sinus tachycardia no ST changes EKG 11/05/2017: sinus tachycardia no ST changes -continue BB, asa. No further work up needed. Cardiology will sign off. (2) Status post total left knee replacement Current Visit: No Status: Acute s/p total left knee replacement 11/03/2017 doppler b/l LE was negative for DVT on DVT prophylaxis Discussion w patient/family: The assessment and plan as outlined above was discussed with the patient and/or family members who expressed understanding and agreement. All questions were answered. Thank you for involving us in the care of your patient. Please call with any questions. History of Present Illness Consult date: 11/05/17 Requesting physician: Irina Tian Consult reason: atrial flutter tachycardia with RVR Chief complaint: left total knee replacement History of present illness: Ms. Ramos is a 77 year old female with PMH COPD, HTN, HLD who presented to [facility] for a total left knee replacement which was done on 11/03/2017. The operation went well however, in the evening she developed tachycardia for which an EKG was done and automated read was atrial flutter tachycardia with RVR. Cardiology was consulted by ortho and the patient was started on metprolol. Upon my examination she denies ever having chest pain during the evening or now. Denies shortness of breath, palpitations, nausea, diaphoresis, syncope, change in vision. She reports having scarlet fever as a child and sine then has had a murmur. She had an echo 5yo ago when she was diagnosed with breast cancer and it was normal. No other cardiac history or blood clots. She is a former smoker who quit in 1964. No family hx of cardiac disease. Past Med Surg Social Fam HX - Past Medical History Medical history: arthritis, COPD, fibromyalgia, hyperlipidemia, hypertension Psychiatric history: no psych history - Past Surgical History Surgical History: cholecystectomy, hysterectomy - Social History Smoking Status: Former smoker Packs per day: Quit in 1964 Smokeless Tobacco Status: No Alcohol use: occasionally Drug use: none - Family History Sister Hx Family Cancer: Yes (Breast cancer) Medications and Allergies Amitriptyline [Elavil] 10 mg PO HS 10/30/16 [History] Budesonide/Formoterol 160/4.5 [Symbicort 160/4.5] 2 puff IH BID 10/30/16 [ History] Cholecalciferol (Vitamin D3) [Vitamin D3] 2,000 unit PO BID 10/30/16 [History] Duloxetine HCl [Cymbalta] 60 mg PO DAILY 10/30/16 [History] Gabapentin [Neurontin] 300 mg PO BID 10/30/16 [History] Levothyroxine Sodium [Levoxyl] 75 mcg PO Q48H 10/30/16 [History] Losartan [Cozaar] 25 mg PO DAILY 10/30/16 [History] Omeprazole [PriLOSEC] 40 mg PO DAILY 10/30/16 [History] Aspirin Enteric Coated [Aspirin EC] 325 mg PO BID 10 Days #20 tablet. [Rx] OxyCODONE Immed Rel [Roxicodone 5 MG] 5 mg PO Q6HR PRN 7 Days #28 tablet [Rx] Calcium Carbonate [Calcium] 600 mg PO BID 11/03/17 [History] Donepezil [Aricept] 5 mg PO HS 11/03/17 [History] Levothyroxine [Synthroid] 50 mcg PO Q48H 11/03/17 [History] Lovastatin 40 mg PO HS 11/03/17 [History] Multivitamin [One Daily Multivitamin] 1 tab PO DAILY 11/03/17 [History] 3 Allergy/AdvReac Type Severity Reaction Status Date / Time clarithromycin [From Biaxin] AdvReac Nausea Verified 11/03/17 14:55 prednisone AdvReac Gastrointestinal Verified 11/03/17 14:55 Upset simvastatin AdvReac Cough Verified 11/03/17 14:55 All Systems Review: The remainder of the systems were reviewed and are negative - Constitutional Constitutional: no chills, no fever(s) - EENT Eyes: no blurred vision, no loss of vision - Cardiovascular Cardiovascular: no chest pain at rest, no diaphoresis, no leg edema, no palpitations, no syncope - Respiratory Respiratory: no dyspnea - Gastrointestinal Gastrointestinal: no abdominal pain - Integumentary Integumentary: no erythema - Neurological Neurological: no loss of vision, no syncope Physical Examination Vital Signs, Last 4 Hours Temp Pulse Resp BP Pulse Ox 11/05/17 08:25 16 90 11/05/17 06:40 98.4 F 78 16 129/67 96 General: Conversant, No Apparent Distress HEENT: Atraumatic, Mucus Membranes Moist Neck: No JVD Cardiac: Reg Rate and Rhythm, Normal S1 and S2, Other (systolic) Lungs: Normal Breath Sounds Neuro: Alert and responsive, No focal deficits noted Abdomen: Soft, Non-Tender Skin: No rashes noted on visualized skin Musculoskeletal: No Chest Wall Tenderness Extremities: No Edema Results 11/05/17 06:36 11/05/17 08:55 Lab Results 11/05/17 11/05/17 11/05/17 06:36 06:36 08:55 Hgb 11.1 L Hct 34.3 L Sodium TNP 131 L Potassium TNP 3.8 Chloride TNP 96 L Carbon Dioxide TNP 28 BUN TNP 11 Creatinine TNP 0.65 Glucose TNP 152 H Calcium TNP 9.1 Magnesium TNP 1.7 TSH TNP Consult Discharge Plan - Plan Referrals: Jorge Luis Sharpe DO [Primary Care Provider] -
[2017-11-05 10:10] LABS: Thyroid Stimulating Hormone 0.646 mcIU/mL (0.340-5.600)
--- NOTE | 2017-11-05 13:36 | Internal Med Progress Note ---
Date of Encounter: 11/05/17 Time of Encounter: 13:34 - Assessment and plan (1) Tachycardia Current Visit: Yes Status: Acute Assessment and plan: Sinus tachycardia likely triggered by pain Cardiology was consulted and started Lopressor We will sign off, please reconsult if needed (2) Status post total left knee replacement Current Visit: No Status: Acute Assessment and plan: Management per orthopedic surgery (3) Hypothyroidism Current Visit: No Status: Chronic Assessment and plan: Synthroid Qualifiers: Hypothyroidism type: unspecified Qualified Code(s): E03.9 - Hypothyroidism , unspecified (4) COPD (chronic obstructive pulmonary disease) Current Visit: No Status: Chronic Assessment and plan: Baseline Qualifiers: COPD type: unspecified COPD Qualified Code(s): J44.9 - Chronic obstructive pulmonary disease, unspecified (5) ZORA (obstructive sleep apnea) Current Visit: No Status: Chronic Assessment and plan: Nocturnal CPAP (6) Obesity (BMI 35.0-39.9 without comorbidity) Current Visit: Yes Status: Chronic Assessment and plan: Education - Subjective Interval history: Complaining of mild pain over the left knee, denies any chest pain, no abdominal pain, no dysuria, no fevers, no shortness of breath - Constitutional Vitals: Temp Pulse Resp BP Pulse Ox 98.5 F 83 16 132/73 94 11/05/17 10:11 11/05/17 10:11 11/05/17 10:11 11/05/17 10:11 11/05/17 10:11 General appearance: Present: A&O X 3 - Head Head exam: Present: atraumatic, normocephalic - Eye Eye exam: Present: PERRL, conjuntiva pink, sclera anicteric Pupils: Present: PERRL - Neck Neck exam general surgery: Present: supple, trachea midline. Absent: lymphadenopathy - Respiratory Respiratory exam: Present: CTAB. Absent: accessory muscle use, rales, rhonchi, wheezes - Cardiovascular Cardiovascular exam: Present: RRR, +S1, +S2. Absent: diastolic murmur, gallop, rubs, systolic murmur - GI/Abdominal GI/Abdominal exam: Present: normal bowel sounds, soft, no peritoneal signs. Absent: distended, tenderness - Extremities Exam Extremities exam: Present: warm, radial pulses palpable and symmetrical. Absent : calf tenderness, cyanotic, pedal edema - Neurological Exam Neurological exam: Present: CN II-XII intact, oriented X3, no focal deficits. Absent: pronater drift, facial droop, speech deficit - Skin Skin exam: Present: dry, intact Additional comments: Left knee surgical wound covered by dressing Internal Medicine: Result - Labs CBC & Chem 7: 11/05/17 06:36 11/05/17 08:55 Labs: Short CBC 11/05/17 Range/Units 06:36 Hgb 11.1 L (11.5-15.4) g/dL Hct 34.3 L (35.3-44.9) % BMP 11/05/17 11/05/17 06:36 08:55 Sodium TNP 131 L Potassium TNP 3.8 Chloride TNP 96 L Carbon Dioxide TNP 28 BUN TNP 11 Creatinine TNP 0.65 Glucose TNP 152 H Calcium TNP 9.1 - VTE Documentation of Mechanical Device: Venous foot pump, device Consult Discharge Plan - Plan Referrals: Jorge Luis Sharpe DO [Primary Care Provider] -
--- NOTE | 2017-11-05 18:00 | Event Note ---
Date of Encounter: 11/05/17 Time of Encounter: 11:50 PCR- POD#2 L TKR Chapman 11/03/17 PCR - Patient seen at bedside. Spouse and daughter at bedside. Labwork and medications reviewed. Pain control: Adequate Neurovascualrly intact. Participating in PT. All questions and concerns addressed. Educated on use of incentive spirometer, ambulation, and hydration. Patient educated on post-operative restrictions and care. Addressed: Tachycardia - discussed continuing Lopressor upon discharge - patient in agreement. Erythematous leg and pain - doppler 11/04 NEG. D/C plan: ECF
--- NOTE | 2017-11-05 20:02 | Electrocardiograph Report ---
[place] [address] Test Date: 2017-11-04 Pat Name: Shelbie Ramos Department: 114 Room: [facility] Gender: F Public Health Nurse: JAVIER : 1940 Requested By: Irina Tian Order Number: [id number] Reading MD: Marques Levy MD Measurements Intervals [place] Rate: 110 P: [place]: 0 QRS: 25 QRSD: 110 T: 82 QT: 319 QTc: 384 Interpretive Statements SINUS TACHYCARDIA Electronically Signed On 11-05-2017 20:00:35 EDT by Marques Levy MD
--- NOTE | 2017-11-05 20:06 | Electrocardiograph Report ---
[address] [address] Test Date: 2017-11-05 Pat Name: Shelbie Ramos Department: 114 Room: [facility] Gender: F Staff Radiographer: : 1940 Requested By: Franki Chapman Order Number: [id number] Reading MD: Marques Levy MD Measurements Intervals [place] Rate: 92 P: 42 [place]: 177 QRS: 8 QRSD: 106 T: 80 QT: 334 QTc: 384 Interpretive Statements SINUS RHYTHM BASELINE ARTIFACT Electronically Signed On 11-05-2017 20:04:58 EDT by Marques Levy MD
--- NOTE | 2017-11-05 20:09 | Electrocardiograph Report ---
[place] [address] Test Date: 2017-11-05 Pat Name: Shelbie Ramos Department: 114 Room: [facility] Gender: F Automotive Glass Specialist: [id number] : 1940 Requested By: Franki Chapman Order Number: [id number] Reading MD: Marques Levy MD Measurements Intervals [place] Rate: 95 P: 62 ND: 195 QRS: 2 QRSD: 110 T: 83 QT: 340 QTc: 393 Interpretive Statements SINUS RHYTHM WITH OCCASIONAL VENTRICULAR PREMATURE COMPLEXES BASELINE ARTIFACT Electronically Signed On 11-05-2017 20:07:19 EDT by Marques Levy MD
[2017-11-06] MEDS: *HR* Enoxaparin 30 MG/0.3 ML SYRINGE SQ SCH (06:26)
--- NOTE | 2017-11-06 06:58 | Electrocardiograph Report ---
[address] [place], [place] [address] Test Date: 2017-11-05 Pat Name: Shelbie Ramos Department: 114 Room: [facility] Gender: F Burrito Maker: : 1940 Requested By: Walter Whitney Order Number: [id number] Reading MD: Marques Levy MD Measurements Intervals [place] Rate: 96 P: [place]: 0 QRS: -8 QRSD: 105 T: 96 QT: 345 QTc: 399 Interpretive Statements SINUS TACHYCARDIA WITH PVC Poor R wave progression BASELINE ARTIFACT Electronically Signed On 11-06-2017 6:56:57 EDT by Marques Levy MD
[2017-11-06 07:42] VITALS: BP 105/71
[2017-11-06] MEDS: Multivit/Ca/Min/Fe/FA 1 TAB TABLET PO SCH (08:02)
[2017-11-06] MEDS: Cholecalciferol (D-3) 1,000 UNIT TABLET PO SCH (08:03)
[2017-11-06] MEDS: Gabapentin 300 MG CAPSULE PO SCH (08:03)
[2017-11-06] MEDS: Budesonide/Formoterol 160/4.5 MDI IH SCH (08:36)
--- NOTE | 2017-11-06 08:48 | Orthopedics Progress Note ---
Date of Encounter: 11/06/17 Time of Encounter: 08:48 - Assessment and Plan (1) Obesity (BMI 35.0-39.9 without comorbidity) Current Visit: Yes Status: Chronic (2) Bilateral sacroiliitis Current Visit: No Status: Chronic (3) Arthritis of left knee Current Visit: No Status: Chronic (4) Status post total left knee replacement Current Visit: No Status: Acute (5) HLD (hyperlipidemia) Current Visit: No Status: Chronic Qualifiers: Hyperlipidemia type: unspecified Qualified Code(s): E78.5 - Hyperlipidemia , unspecified (6) GERD (gastroesophageal reflux disease) Current Visit: No Status: Chronic Qualifiers: Esophagitis presence: esophagitis presence not specified Qualified Code(s) : K21.9 - Gastro-esophageal reflux disease without esophagitis (7) Fibromyalgia Current Visit: No Status: Chronic (8) Hypothyroidism Current Visit: No Status: Chronic Qualifiers: Hypothyroidism type: unspecified Qualified Code(s): E03.9 - Hypothyroidism , unspecified (9) COPD (chronic obstructive pulmonary disease) Current Visit: No Status: Chronic Qualifiers: COPD type: unspecified COPD Qualified Code(s): J44.9 - Chronic obstructive pulmonary disease, unspecified (10) ZORA (obstructive sleep apnea) Current Visit: No Status: Chronic (11) HTN (hypertension) Current Visit: No Status: Chronic Qualifiers: Hypertension type: unspecified Qualified Code(s): I10 - Essential (primary ) hypertension (12) History of breast cancer Current Visit: No Status: Chronic (13) Tachycardia Current Visit: Yes Status: Acute Subjective Principal diagnosis: Patient was seen this morning doing well without complaints. Interval history: Patient was seen this morning doing well without complaints. Afebrile vital signs stable. Operative extremity: Neurovascularly intact Dressing clean dry and intact Calves nontender Assessment and plan: Continue with postoperative care patient started on Lopressor by cardiology for postoperative tachycardia. Discharged today Objective Vital signs: Vital Signs Temp Pulse Resp BP Pulse Ox 11/06/17 07:12 98.1 F 95 18 105/71 93 11/06/17 05:16 98.2 F 90 17 113/65 92 11/06/17 01:56 97.6 F 85 16 107/67 94 11/05/17 20:24 17 95 11/05/17 18:37 98.2 F 99 16 131/74 94 11/05/17 16:00 98 F 95 16 154/80 95 11/05/17 10:11 98.5 F 83 16 132/73 94 Intake and Output 11/05/17 11/06/17 11/06/17 23:59 07:59 15:59 Intake Total 360 / 360 Output Total 600 / 600 Balance -600 / -600 360 / 360 Intake: Oral 360 / 360 Output: Urine 600 / 600 Other: Meal Breakfast Percent of Meal Consumed 50% Stool Size Small Stool Consistency formed Stool Characteristics Normal for Patient Stool Color Brown # Voids 0 1 # Bowel Movements 1 Weight 112.6 kg Patient Weight 11/06/17 23:59 Weight 112.6 kg - Labs CBC & BMP: 11/05/17 06:36 11/05/17 08:55 Labs: Abnormal lab results Hgb 11.1 g/dL (11.5-15.4) L 11/05/17 06:36 Hct 34.3 % (35.3-44.9) L 11/05/17 06:36 Sodium 131 mEq/L (136-145) L 11/05/17 08:55 Chloride 96 mEq/L (98-107) L 11/05/17 08:55 Glucose 152 mg/dL (70-105) H 11/05/17 08:55 Calculated Osmolality 274 (280-300) L 11/05/17 08:55 - VTE Documentation of Mechanical Device: Venous foot pump, device Consult Discharge Plan - Plan Additional Instructions: Discharge Instructions: Total Knee Replacement Please call [facility] ([phone]), your Primary Care Physician, or report to the Emergency Room if you have any of the following symptoms: Nausea, vomiting, fever greater that 101.5, swelling, chest pain, shortness of breath, increased pain/redness/drainage/odor for your incision site, numbness/ tingling, or any other concerning symptoms. ACTIVITY:Weight-bearing as tolerated. You may progress off support (crutches or walker) as tolerated. MEDICATIONS: Upon discharge resume your home medications. Take all the medications as prescribed. Take a stool softener if taking narcotic pain medications. Stool softeners are only effective if you drink enough fluids. Drink 6-8 glass of water or fluids a day, unless this is not allowed for another health problem. Despite using stool softeners, if you haven't had a bowel movement in 3 days, please switch to a gentle laxative. Gentle laxatives are sold over the counter. You should have a bowel movement within 24 hours, if not call the office. You will be discharged from the hospital with a prescription for pain medication. You are encouraged to decrease the use of narcotic pain medication as tolerated. Should you require a refill, please call the office. [facility] prescribes narcotic pain medication for only 4-6 weeks after surgery. If you require pain medication beyond this time period, you may be referred to your Primary Care Physician or to the Pain Clinic for further evaluation. Plan ahead for refills on pain medication as many narcotics either need to be picked up at the office or mailed. It is best to call 48-72 hours in advance of needing a prescription refill so you don't run out of medication. To help control the post-operative pain, you may take NSAIDs (Aleve,Advil, Motrin, Ibuprofen, Naprosyn) or Tylenol as prescribed on the bottle in addition to the pain medication. ANTICOAGULATION (blood thinners): Continue your Aspirin, Lovenox or Coumadin as prescribed to help prevent a blood clot in the leg or in the lungs. As long as your incision remains dry and you tolerate the NSAIDs (Aleve, Advil, Motrin, ibuprofen, naprosyn), it is OK to use the NSAIDS while you are taking your anticoagulation medication. Should your incision start to drain, stop the NSAID and contact our office. Common symptoms of blood clot in the legs include: localized pain, swelling, calf tenderness, redness or discoloration of the skin. Blood clot in the lung symptoms include: shortness of breath, rapid pulse, sweating, and chest pain that worsens with deep breathing, coughing up blood, lightheadedness, feelings of anxiety. If you experience any of these symptoms notify your physician immediately, go to the emergency room, or if having trouble breathing, call 911. WOUND CARE: Leave the dressing on for 7 to 10days. You may change the dressing if it becomes saturated greater than 50%. Do not get the dressing wet at anytime. Wash your hands with antibacterial soap, rinse and dry prior to any wound care. If you have william the visiting nurse or rehab facility can remove the stapes 10-14 days after surgery and place steri-strips across the wound. Leave the steri-strips in place until they fall off on their won. You may let water from the shower run on top of the steri-strips. If you do not have a visiting nurse or rehab facility, you will need to return to the office at 10-14 days for the william to be removed. If you have itching or redness around the dressing call the office. FOLLOW-UP: Please follow up with your surgeon in the orthopedic clinic in 4 weeks from the day of surgery. If you have william that need to be removed, you will need to come back to the office in 10-14 days from the day of surgery. Referrals: Jorge Luis Sharpe, [Primary Care Provider] -
--- NOTE | 2017-11-06 15:31 | Event Note ---
Date of Encounter: 11/06/17 Time of Encounter: 11:50 PCR- POD#3 L TKR Chapman 11/03/17 PCR - Patient seen at bedside. Spouse and daughter at bedside. Labwork and medications reviewed. Pain control: Adequate Neurovascualrly intact. Participating in PT. All questions and concerns addressed. Educated on use of incentive spirometer, ambulation, and hydration. Patient educated on post-operative restrictions and care. Addressed: Tachycardia - discussed continuing Lopressor upon discharge - patient in agreement. Erythematous leg and pain - doppler 11/04 NEG. Follow up PCP upon discharge for other health conditions. D/C plan: ECF today
== END 2017-11-06 12:26 | DRG 470 ==
LOC: SAMDAY 14:21 → 3NENU 20:03
PROVIDERS: ADMIT Orthopaedic Surgery; ATTEND Orthopaedic Surgery

== ENCOUNTER 2017-11-10 03:28 | Observation (INO) ==
[2017-11-10] MEDS ORDERED: *HR* FentaNYL (PF) 100 MCG/2 ML VIAL IVP ONE ×3 (03:32→05:48)
[2017-11-10] MEDS ORDERED: Ondansetron 4 MG/2 ML VIAL IVP ONE (03:32)
--- NOTE | 2017-11-10 04:09 | Emergency Department Note ---
Disposition Clinical Impression: Left leg pain Disposition: Admitted As Inpatient Condition: Fair Referrals: Jorge Luis Sharpe DO [Primary Care Provider] - Forms: ED Satisfaction Letter General Adult HPI - General Chief complaint: ED Extremity Problem,Nontraumatic Stated complaint: left leg pain Time Seen by Provider: 11/10/17 03:32 Source: patient, family, EMS Mode of arrival: EMS Limitations: no limitations Nursing Notes Reviewed: Yes Vital Signs Reviewed: Yes - History of Present Illness HPI Narrative: 77-year-old female presents from a rehabilitation facility for where she has been staying since having a total knee replacement last week. She was sent in for evaluation of left leg pain and swelling. It was also reported that she has some redness around her surgical wound. Pt Subjective Complaint: Left leg pain and swelling Onset (ago): day(s) (2) Location: left, lower extremity (Review the patient's) Radiation: proximal, distal Pain Severity: severe Quality: stabbing, aching, sharp Consistency: constant Improves with: nothing Worsens with: movement Associated symptoms: Reports: malaise. Denies: confusion, chest pain, cough, diaphoresis, fever/chills, headaches, loss of appetite, nausea/vomiting, rash, seizure, shortness of breath, syncope, weakness Treatments Prior to Arrival: other (Pain medication) - Related Data Home Medications Medication Instructions Recorded Confirmed Amitriptyline [Elavil] 10 mg PO HS 10/30/16 11/03/17 Budesonide/Formoterol 160/4.5 2 puff IH BID 10/30/16 11/03/17 [Symbicort 160/4.5] Cholecalciferol (Vitamin D3) 2,000 unit PO BID 10/30/16 11/03/17 [Vitamin D3] Duloxetine HCl [Cymbalta] 60 mg PO DAILY 10/30/16 11/03/17 Gabapentin [Neurontin] 300 mg PO BID 10/30/16 11/03/17 Levothyroxine Sodium [Levoxyl] 75 mcg PO Q48H 10/30/16 11/03/17 Losartan [Cozaar] 25 mg PO DAILY 10/30/16 11/03/17 Omeprazole [PriLOSEC] 40 mg PO DAILY 10/30/16 11/03/17 Calcium Carbonate [Calcium] 600 mg PO BID 11/03/17 11/03/17 Donepezil [Aricept] 5 mg PO HS 11/03/17 11/03/17 Levothyroxine [Synthroid] 50 mcg PO Q48H 11/03/17 11/03/17 Lovastatin 40 mg PO HS 11/03/17 11/03/17 Multivitamin [One Daily 1 tab PO DAILY 11/03/17 11/03/17 Multivitamin] Previous Rx's Medication Instructions Recorded Aspirin Enteric Coated [Aspirin EC] 325 mg PO BID 10 Days #20 tablet. 11/02/17 OxyCODONE Immed Rel [Roxicodone 5 5 mg PO Q6HR PRN 7 Days #28 tablet 11/02/17 MG] Allergies Allergy/AdvReac Type Severity Reaction Status Date / Time clarithromycin [From Biaxin] AdvReac Nausea Verified 11/03/17 14:55 prednisone AdvReac Gastrointestinal Verified 11/03/17 14:55 Upset simvastatin AdvReac Cough Verified 11/03/17 14:55 All systems ED: reviewed and negative except as stated. Review of Systems: As Per HPI Constitutional: Reports: chills. Denies: fever, weakness, weight change, night sweats Cardiovascular: Denies: chest pain, palpitations, dyspnea on exertion, orthopnea , syncope Respiratory: Denies: cough, dyspnea, wheezes, hemoptysis, stridor Gastrointestinal: Denies: abdominal pain, nausea, vomiting Genitourinary: Denies: urgency, dysuria, frequency, hematuria Musculoskeletal: Reports: as per HPI, back pain (Left lower started yesterday. History of similar. No trauma.), joint swelling, arthralgia. Denies: neck pain Integumentary: Denies: rash Neurological: Denies: headache, weakness, numbness, paresthesias, confusion Endocrine: Reports: fatigue Hematological/Lymphatic: Denies: easy bleeding, easy bruising Past Medical History - Past Medical History Attestation: Yes The following information was validated with the patient. Source: patient Medical history: Reports: arthritis, COPD, fibromyalgia, hyperlipidemia, hypertension Surgical history: Reports: cholecystectomy, hysterectomy Psychiatric history: Reports: no psych history - Social History Smoking Status: Former smoker Smokeless Tobacco Status: No Alcohol use: Reports: occasionally Drug use: Reports: none Physical Exam - General Limitations: no limitations General appearance: alert, in no apparent distress - Head Head exam: atraumatic, normocephalic, normal inspection - Eye Eye exam: Present: normal appearance, PERRL. Absent: scleral icterus, conjunctival injection, periorbital swelling - ENT ENT exam: mucous membranes moist - Neck Neck exam: Present: normal inspection, full ROM, trachea midline - Chest Chest inspection: Present: normal inspection, symmetric chest wall rise - Respiratory Respiratory exam: Present: normal lung sounds bilaterally. Absent: respiratory distress - Cardiovascular Cardiovascular exam: Present: normal rhythm, tachycardia, normal heart sounds - Extremities Exam Extremities exam: Present: tenderness, normal capillary refill, pedal edema ( Left foot), joint swelling (Left knee), calf tenderness (Left) - Expanded Lower Extremity Exam Hip/Pelvis exam: Present: normal inspection. Absent: tenderness Upper leg exam: Present: normal inspection. Absent: tenderness, swelling Knee exam: Present: tenderness, swelling, ecchymosis, erythema (Mild surrounding the proximal and distal edges of the wound. The metal portion of the wound has no erythema. There is no purulent drainage. ), knee extension intact. Absent: full ROM, deformity Lower leg exam: Present: tenderness, swelling, ecchymosis, Homans' sign, Achilles tendon intact. Absent: erythema Ankle exam: Present: normal inspection, full ROM, swelling (Mild). Absent: tenderness Foot/toe exam: Present: normal inspection, full ROM, swelling (Dorsal left foot) . Absent: tenderness Neurovascular/Tendon exam: Present: normal capillary refill, normal fine/light touch. Absent: pulse deficit, motor deficit, sensory deficit, extremity cold to touch, pallor, foot drop, significant pain with passive ROM of distal joint Gait: not tested/not observed - Neurological Exam Neurological exam: Present: alert, oriented X3, CN II-XII intact - Psychiatric Psychiatric exam: Present: normal affect, normal mood - Skin Skin exam: Present: warm, dry, intact, normal color Course Course Narrative: Patient presents from rehabilitation facility for evaluation of left knee pain. She has been there for a week since having a total knee replacement. For the past few days she has had increasing knee pain as well as left calf pain. She has mild erythema around the surgical wound and edema in the left man and left calf. She has been on Lovenox since postop day one. She has had no fever but has had chills, no nausea or vomiting. She started having some low back pain yesterday, but denies any urinary symptoms. Labs pain meds, fluids have been ordered. Case was discussed with Dr. Chapman. He states that he will stop by the ER to see the patient. Doppler ultrasound has been ordered as well. Care of this patient is being transferred to the oncoming provider Chester Medina CNP, as it is shift change.
[2017-11-10 04:21] LABS: Basophils % 0.3 %; Eosinophils # 0.2 K/mcL (0.0-0.6); Eosinophils % 1.3 %; Hematocrit 31.7 % (35.3-44.9); Hemoglobin 10.3 g/dL (11.5-15.4); Immature Granulocytes % 0.6 % (0-4); Lymphocytes # 0.9 K/mcL (0.6-4.6); Lymphocytes % 7.6 %; Mean Corpuscular HGB Conc 32.5 g/dL (31.6-35.5); Mean Corpuscular Volume 92.4 fL (83.0-100.0); Mean Platelet Volume 10.4 fL (9.4-12.4); Monocytes # 0.9 K/mcL (0.0-1.3); Monocytes % 7.8 %; Neutrophils # 9.8 K/mcL (1.6-8.9); Platelet Count 375 K/mcL (140-400); Red Blood Count 3.43 M/mcL (3.82-4.97); Red Cell Distribution Width 12.8 % (11.5-14.5); Segmented Neutrophils % 82.4 %
[2017-11-10 04:25] LABS: INR 1.1; Prothrombin Time 12.4 Seconds (9.4-12.1)
[2017-11-10 04:37] LABS: BUN/Creatinine Ratio 14 (6-26); Blood Urea Nitrogen 10 mg/dL (8-23); Calcium 8.9 mg/dL (8.6-10.3); Carbon Dioxide 29 mEq/L (23-29); Chloride 98 mEq/L (98-107); Glucose 158 mg/dL (70-105); Osmolality,Calculated 278 (280-300); Potassium 3.9 mEq/L (3.5-5.1); Sodium 133 mEq/L (136-145); eGFR For African Americans > 60 (> 60); eGFR For Non-African Americans > 60 (> 60)
[2017-11-10] MEDS ORDERED: 0.9 % Sodium Chloride 1,000 ML IVC ONE (06:01)
--- NOTE | 2017-11-10 07:01 | Emergency Department Note ---
Disposition Clinical Impression: Left leg pain, Intractable low back pain Disposition: Admitted As Inpatient Condition: Fair Referrals: Jorge Luis Sharpe DO [Primary Care Provider] - Forms: ED Satisfaction Letter Time of Disposition: 11:58 Extremity Problem HPI - General Chief complaint: ED Extremity Problem,Nontraumatic Stated complaint: left leg pain Time Seen by Provider: 11/10/17 03:32 Source: patient, family, EMS Mode of arrival: EMS Limitations: no limitations - History of Present Illness Consistency: constant Pain Scale: 8 - Related Data Home Medications Medication Instructions Recorded Confirmed Amitriptyline [Elavil] 10 mg PO HS 10/30/16 11/03/17 Budesonide/Formoterol 160/4.5 2 puff IH BID 10/30/16 11/03/17 [Symbicort 160/4.5] Cholecalciferol (Vitamin D3) 2,000 unit PO BID 10/30/16 11/03/17 [Vitamin D3] Duloxetine HCl [Cymbalta] 60 mg PO DAILY 10/30/16 11/03/17 Gabapentin [Neurontin] 300 mg PO BID 10/30/16 11/03/17 Levothyroxine Sodium [Levoxyl] 75 mcg PO Q48H 10/30/16 11/03/17 Losartan [Cozaar] 25 mg PO DAILY 10/30/16 11/03/17 Omeprazole [PriLOSEC] 40 mg PO DAILY 10/30/16 11/03/17 Calcium Carbonate [Calcium] 600 mg PO BID 11/03/17 11/03/17 Donepezil [Aricept] 5 mg PO HS 11/03/17 11/03/17 Levothyroxine [Synthroid] 50 mcg PO Q48H 11/03/17 11/03/17 Lovastatin 40 mg PO HS 11/03/17 11/03/17 Multivitamin [One Daily 1 tab PO DAILY 11/03/17 11/03/17 Multivitamin] Previous Rx's Medication Instructions Recorded Aspirin Enteric Coated [Aspirin EC] 325 mg PO BID 10 Days #20 tablet. 11/02/17 OxyCODONE Immed Rel [Roxicodone 5 5 mg PO Q6HR PRN 7 Days #28 tablet 11/02/17 MG] Allergies Allergy/AdvReac Type Severity Reaction Status Date / Time clarithromycin [From Biaxin] AdvReac Nausea Verified 11/03/17 14:55 prednisone AdvReac Gastrointestinal Verified 11/03/17 14:55 Upset simvastatin AdvReac Cough Verified 11/03/17 14:55 Constitutional: Reports: chills. Denies: fever, weakness, weight change, night sweats Cardiovascular: Denies: chest pain, palpitations, dyspnea on exertion, orthopnea , syncope Respiratory: Denies: cough, dyspnea, wheezes, hemoptysis, stridor Gastrointestinal: Denies: abdominal pain, nausea, vomiting Genitourinary: Denies: urgency, dysuria, frequency, hematuria Musculoskeletal: Reports: as per HPI, back pain (Left lower started yesterday. History of similar. No trauma.), joint swelling, arthralgia. 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 Please see Irina's documentation for care performed prior to my arrival, briefly, this is an alert and oriented uncomfortable-appearing 77 -year-old female that presented from a local F for worsening left knee pain status post left total knee replacement that was performed this past Friday by Dr. Chapman. ECF staff reported some erythema around the surgical site itself. The patient also reported some worsening edema of the left man, and left foot. She complains of a new onset of left calf pain as well as left popliteal pain. Manages had contacted Dr. Chapman, who recommended all ultrasound be ordered to rule out a DVT. This study is currently pending. Dr. Chapman stated that he will evaluate the patient here in the emergency department himself. 0752: I been notified by the manufacturing production technician that the patient is negative for a DVT or SVT of the bilateral lower extremities. 1140: I discussed the patient's MRI findings with Dr. Chapman, sales operations specialist. Dr. Chapman recommends admission to the hospital service for intractable back/left lower extremity pain. He does recommend initiating IV Toradol for the patient's pain. 1155: I spoke with Dr. Velazquez of the hospitalist services agreed to accept the patient for admission under the hospitalist care. I discussed this plan with Dr. Arlene Call. Dr. Arlene Call has had a [id number] evaluation with the patient and agrees with this plan. Vital Signs Temperature 99.0 F 11/10/17 03:35 Pulse Rate 104 11/10/17 03:35 Respiratory Rate 21 11/10/17 03:35 Blood Pressure 192/83 11/10/17 03:35 O2 Sat by Pulse Oximetry 94 11/10/17 03:35 Temperature 99.0 F 11/10/17 03:35 Pulse Rate 96 11/10/17 08:49 Respiratory Rate 16 11/10/17 08:49 Blood Pressure 184/77 11/10/17 08:49 O2 Sat by Pulse Oximetry 95 11/10/17 08:49 Oxygen Delivery Oxygen Delivery Room Air Extremity Problem, Nontraumati - Medical Records Medical records reviewed: Yes I reviewed the patient's medical records. - Lab Data Lab results reviewed: Yes I reviewed the patient's lab results. Lab results narrative: Lab Results 11/10/17 11/10/17 11/10/17 Range/Units 04:02 04:02 04:02 WBC 11.9 H (4.3-11.1) K/mcL RBC 3.43 L (3.82-4.97) M/mcL Hgb 10.3 L (11.5-15.4) g/dL Hct 31.7 L (35.3-44.9) % MCV 92.4 (83.0-100.0) fL MCH 30.0 (28.0-33.3) pg MCHC 32.5 (31.6-35.5) g/dL RDW 12.8 (11.5-14.5) % Plt Count 375 (140-400) K/mcL MPV 10.4 (9.4-12.4) fL Immature Gran % 0.6 (0-4) % Seg Neutrophils % 82.4 % Lymphocytes % 7.6 % Monocytes % 7.8 % Eosinophils % 1.3 % Basophils % 0.3 % Neutrophils # 9.8 H (1.6-8.9) K/mcL Lymphocytes # 0.9 (0.6-4.6) K/mcL Monocytes # 0.9 (0.0-1.3) K/mcL Eosinophils # 0.2 (0.0-0.6) K/mcL Basophils # 0.0 (0.0-0.2) K/mcL PT 12.4 H (9.4-12.1) Seconds INR 1.1 Sodium 133 L (136-145) mEq/L Potassium 3.9 (3.5-5.1) mEq/L Chloride 98 (98-107) mEq/L Carbon Dioxide 29 (23-29) mEq/L BUN 10 (8-23) mg/dL Creatinine 0.74 (0.60-1.20) mg/dL Est GFR ( Amer) > 60 (> 60) Est GFR (Non-Af Amer) > 60 (> 60) BUN/Creatinine Ratio 14 (6-26) Glucose 158 H (70-105) mg/dL Calculated Osmolality 278 L (280-300) Calcium 8.9 (8.6-10.3) mg/dL Result diagrams: 11/10/17 04:02 11/10/17 04:02 Lab Results 11/10/17 11/10/17 11/10/17 Range/Units 04:02 04:02 04:02 WBC 11.9 H (4.3-11.1) K/mcL RBC 3.43 L (3.82-4.97) M/mcL Hgb 10.3 L (11.5-15.4) g/dL Hct 31.7 L (35.3-44.9) % MCV 92.4 (83.0-100.0) fL MCH 30.0 (28.0-33.3) pg MCHC 32.5 (31.6-35.5) g/dL RDW 12.8 (11.5-14.5) % Plt Count 375 (140-400) K/mcL MPV 10.4 (9.4-12.4) fL Immature Gran % 0.6 (0-4) % Seg Neutrophils % 82.4 % Lymphocytes % 7.6 % Monocytes % 7.8 % Eosinophils % 1.3 % Basophils % 0.3 % Neutrophils # 9.8 H (1.6-8.9) K/mcL Lymphocytes # 0.9 (0.6-4.6) K/mcL Monocytes # 0.9 (0.0-1.3) K/mcL Eosinophils # 0.2 (0.0-0.6) K/mcL Basophils # 0.0 (0.0-0.2) K/mcL PT 12.4 H (9.4-12.1) Seconds INR 1.1 Sodium 133 L (136-145) mEq/L Potassium 3.9 (3.5-5.1) mEq/L Chloride 98 (98-107) mEq/L Carbon Dioxide 29 (23-29) mEq/L BUN 10 (8-23) mg/dL Creatinine 0.74 (0.60-1.20) mg/dL Est GFR ( Amer) > 60 (> 60) Est GFR (Non-Af Amer) > 60 (> 60) BUN/Creatinine Ratio 14 (6-26) Glucose 158 H (70-105) mg/dL Calculated Osmolality 278 L (280-300) Calcium 8.9 (8.6-10.3) mg/dL - Radiology Data Radiology results reviewed: Yes I reviewed the patient's radiology results.
[2017-11-10] MEDS ORDERED: *HR* OxyCODONE/APAP 5/325 TABLET PO ONE (08:12)
[2017-11-10] MEDS: *HR* LORazepam 2 MG/ML VIAL IVP ONE ×2 (09:38→16:45)
[2017-11-10] MEDS ORDERED: Ketorolac 15 MG/ML VIAL IVP ONE (11:40)
--- NOTE | 2017-11-10 12:14 | Emergency Department Note ---
Disposition Clinical Impression: Left leg pain, Intractable low back pain Disposition: Admitted As Inpatient Condition: Fair Referrals: Jorge Luis Sharpe DO [Primary Care Provider] - Forms: ED Satisfaction Letter General Adult HPI - General Chief complaint: ED Extremity Problem,Nontraumatic Stated complaint: left leg pain Time Seen by Provider: 11/10/17 03:32 Source: patient, family, EMS Mode of arrival: EMS Limitations: no limitations - History of Present Illness Location: left, lower extremity (Review the patient's) Pain Scale: 8 Quality: stabbing, aching, sharp Improves with: nothing Worsens with: movement Associated symptoms: Reports: malaise. Denies: confusion, chest pain, cough, diaphoresis, fever/chills, headaches, loss of appetite, nausea/vomiting, rash, seizure, shortness of breath, syncope, weakness Treatments Prior to Arrival: other (Pain medication) - Related Data Home Medications Medication Instructions Recorded Confirmed Amitriptyline [Elavil] 10 mg PO HS 10/30/16 11/03/17 Budesonide/Formoterol 160/4.5 2 puff IH BID 10/30/16 11/03/17 [Symbicort 160/4.5] Cholecalciferol (Vitamin D3) 2,000 unit PO BID 10/30/16 11/03/17 [Vitamin D3] Duloxetine HCl [Cymbalta] 60 mg PO DAILY 10/30/16 11/03/17 Gabapentin [Neurontin] 300 mg PO BID 10/30/16 11/03/17 Levothyroxine Sodium [Levoxyl] 75 mcg PO Q48H 10/30/16 11/03/17 Losartan [Cozaar] 25 mg PO DAILY 10/30/16 11/03/17 Omeprazole [PriLOSEC] 40 mg PO DAILY 10/30/16 11/03/17 Calcium Carbonate [Calcium] 600 mg PO BID 11/03/17 11/03/17 Donepezil [Aricept] 5 mg PO HS 11/03/17 11/03/17 Levothyroxine [Synthroid] 50 mcg PO Q48H 11/03/17 11/03/17 Lovastatin 40 mg PO HS 11/03/17 11/03/17 Multivitamin [One Daily 1 tab PO DAILY 11/03/17 11/03/17 Multivitamin] Previous Rx's Medication Instructions Recorded Aspirin Enteric Coated [Aspirin EC] 325 mg PO BID 10 Days #20 tablet. 11/02/17 OxyCODONE Immed Rel [Roxicodone 5 5 mg PO Q6HR PRN 7 Days #28 tablet 11/02/17 MG] Allergies Allergy/AdvReac Type Severity Reaction Status Date / Time clarithromycin [From Biaxin] AdvReac Nausea Verified 11/03/17 14:55 prednisone AdvReac Gastrointestinal Verified 11/03/17 14:55 Upset simvastatin AdvReac Cough Verified 11/03/17 14:55 Constitutional: Reports: chills. Denies: fever, weakness, weight change, night sweats Cardiovascular: Denies: chest pain, palpitations, dyspnea on exertion, orthopnea , syncope Respiratory: Denies: cough, dyspnea, wheezes, hemoptysis, stridor Gastrointestinal: Denies: abdominal pain, nausea, vomiting Genitourinary: Denies: urgency, dysuria, frequency, hematuria Musculoskeletal: Reports: as per HPI, back pain (Left lower started yesterday. History of similar. No trauma.), joint swelling, arthralgia. 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 - Social History Smoking Status: Former smoker Smokeless Tobacco Status: No Alcohol use: Reports: occasionally Drug use: Reports: none Physical Exam - General Limitations: no limitations General appearance: alert, in no apparent distress Course Vital Signs Temperature 99.0 F 11/10/17 03:35 Pulse Rate 104 11/10/17 03:35 Respiratory Rate 21 11/10/17 03:35 Blood Pressure 192/83 11/10/17 03:35 O2 Sat by Pulse Oximetry 94 11/10/17 03:35 Temperature 99.0 F 11/10/17 03:35 Pulse Rate 96 11/10/17 08:49 Respiratory Rate 16 11/10/17 08:49 Blood Pressure 184/77 11/10/17 08:49 O2 Sat by Pulse Oximetry 95 11/10/17 08:49 Oxygen Delivery Oxygen Delivery Room Air Medical Decision Making - Lab Data Result diagrams: 11/10/17 04:02 11/10/17 04:02 Lab Results 11/10/17 11/10/17 11/10/17 Range/Units 04:02 04:02 04:02 WBC 11.9 H (4.3-11.1) K/mcL RBC 3.43 L (3.82-4.97) M/mcL Hgb 10.3 L (11.5-15.4) g/dL Hct 31.7 L (35.3-44.9) % MCV 92.4 (83.0-100.0) fL MCH 30.0 (28.0-33.3) pg MCHC 32.5 (31.6-35.5) g/dL RDW 12.8 (11.5-14.5) % Plt Count 375 (140-400) K/mcL MPV 10.4 (9.4-12.4) fL Immature Gran % 0.6 (0-4) % Seg Neutrophils % 82.4 % Lymphocytes % 7.6 % Monocytes % 7.8 % Eosinophils % 1.3 % Basophils % 0.3 % Neutrophils # 9.8 H (1.6-8.9) K/mcL Lymphocytes # 0.9 (0.6-4.6) K/mcL Monocytes # 0.9 (0.0-1.3) K/mcL Eosinophils # 0.2 (0.0-0.6) K/mcL Basophils # 0.0 (0.0-0.2) K/mcL PT 12.4 H (9.4-12.1) Seconds INR 1.1 Sodium 133 L (136-145) mEq/L Potassium 3.9 (3.5-5.1) mEq/L Chloride 98 (98-107) mEq/L Carbon Dioxide 29 (23-29) mEq/L BUN 10 (8-23) mg/dL Creatinine 0.74 (0.60-1.20) mg/dL Est GFR ( Amer) > 60 (> 60) Est GFR (Non-Af Amer) > 60 (> 60) BUN/Creatinine Ratio 14 (6-26) Glucose 158 H (70-105) mg/dL Calculated Osmolality 278 L (280-300) Calcium 8.9 (8.6-10.3) mg/dL Attestation Statement - Attestation Attestation: For this encounter, I have reviewed the VIDEO SYSTEMS ENGINEER or PA documentation, treatment plan, and medical decision making; and I have had face to face time with this patient. 77 year old female presents to the ED with complaints of knee pain and lower back pain. MRI does not show any changes from basleine and Dr. Chapman has evlauted patient at bedside and does not believe this is secondary to her recent knee replacement. We will admit to medicine for pain control.
[2017-11-10] MEDS ORDERED: Ketorolac 30 MG/ML VIAL IM PRN (13:16)
[2017-11-10] MEDS ORDERED: Ondansetron 4 MG/2 ML VIAL IVP PRN (13:19)
[2017-11-10] MEDS ORDERED: Naloxone 0.4 MG/ML INJ IVP PRN (13:22)
[2017-11-10] MEDS ORDERED: *HR* OxyCODONE Immed Rel 5 MG TABLET PO PRN (13:42)
[2017-11-10] MEDS ORDERED: Ketorolac 30 MG/ML VIAL IVP PRN (13:45)
[2017-11-10] MEDS: *HR* OxyCODONE/APAP 5/325 TABLET PO PRN ×2 (14:17→21:35)
--- NOTE | 2017-11-10 15:48 | Event Note ---
Date of Encounter: 11/10/17 Time of Encounter: 15:00 77-year-old female with history of hypertension, obesity, obstructive sleep apnea, recent left total knee replacement, who was sent from rehabilitation center with worsening pain and swelling in left knee and leg, along with low back pain. Patient seen and examined at bedside. Left leg-diffuse edema, warmth, tenderness. Left knee surgical incision clean and dry, william intact. Labs reviewed. MRI lumbar spine shows multilevel degenerative spondylosis, moderate L3-4 neuroforaminal stenosis. Left leg and knee pain- likely related to surgery; no wound infection noted; venous Doppler of left leg shows no DVT. Orthopedics evaluation completed in the ER, per notes, no intervention recommended; continue pain control with PRN Oxycodone PO and SL; PT/OT evaluation. Supportive care; DVT prophylaxis with s.c Lovenox. Low back pain- supportive care; no surgical issue; follows with pain management as outpatient; Patient assessed along with STRAIGHT SLICING MACHINE OPERATOR, agree with the detailed H&P per STRAIGHT SLICING MACHINE OPERATOR notes;
--- NOTE | 2017-11-10 15:57 | Internal Med History&Physical ---
Date of Encounter: 11/10/17 Time of Encounter: 15:48 Assessment and Plan (1) Left leg pain Current visit: Yes Status: Acute Patient presents today with left lateral calf and left popliteal pain as well as additional swelling and tenderness. Per my examination the patient's left lower extremity has diffuse edema as well as mild left popliteal tenderness. Expected mild erythema of the incision status post left total knee. No drainage noted. Incision well approximated. Palpable pedal pulses bilaterally. Limited range of motion expected following total knee replacement. Doppler ultrasound of left leg shows no DVT. Orthopedics evaluation completed in the ED with no further recommendations. Continue pain control with when necessary oxycodone by mouth and sublingual PT and OT evaluation for functional capacity and return to rehabilitation Continue Lovenox for DVT prophylaxis Today's MRI L-spine shows multilevel degenerative spondylosis, moderate L3-4 neuroforaminal stenosis. (2) Intractable low back pain Current visit: Yes Status: Acute (3) Status post total left knee replacement Current visit: Yes Status: Acute (4) COPD (chronic obstructive pulmonary disease) Current visit: Yes Status: Chronic stable, resume inhalers Qualifiers: COPD type: unspecified COPD Qualified Code(s): J44.9 - Chronic obstructive pulmonary disease, unspecified (5) HLD (hyperlipidemia) Current visit: Yes Status: Chronic resume lipitor Qualifiers: Hyperlipidemia type: unspecified Qualified Code(s): E78.5 - Hyperlipidemia , unspecified (6) HTN (hypertension) Current visit: Yes Status: Chronic hypertensive with SBP in the 190's today. She initially had not taken her am Cozaar dose. She was given her dose late but remain HTN. Stop Cozarr 25mg. Give additional 25mg Cozarr PO then change to Cozarr 50mg QD. Hydralazine 10mg IVP Q6 PRN for SBP greater than 160 Qualifiers: Hypertension type: unspecified Qualified Code(s): I10 - Essential (primary ) hypertension (7) Hypothyroidism Current visit: Yes Status: Chronic Resume synthroid Qualifiers: Hypothyroidism type: unspecified Qualified Code(s): E03.9 - Hypothyroidism , unspecified (8) Obesity (BMI 35.0-39.9 without comorbidity) Current visit: Yes Status: Chronic Discussed lifestyle modifications (9) DVT prophylaxis Current visit: Yes Status: Acute Resume lovenox Internal Medicine - H&P: HPI Chief complaint: low back and left knee pain Admitted From: Home Plans for Post Hospital Care: Home History of present illness: Ms. Ramos is a 77 year old female with a PMH of arthritis, COPD, fibromyalgia, hyperlipidemia, and hypertension. She presents from an ECF for worsening left knee pain and swelling as well as lumbar pain s/p left total knee replacement this past Friday from Dr. Chapman. She reports that the increased swelling and pain began this past Friday. She also has c/o worsening edema of the left lower leg and foot. She states that the pain starts in the left hip and extends into the left groin. She is also reporting lateral calf pain with left popliteal pain. The ECF contacted Dr. Chapman who requested the patient come in for further evaluation to f/o DVT. She denies any fevers, chills, chest pain or dyspnea. Work-up included an US which r/o DVT. MRI of the spine shows multilevel degenerative spondylosis throughout the lumbar spine without high grade spinal canal stenosis. Past Med Surg Social Fam HX - Past Medical History Medical history: arthritis, COPD, fibromyalgia, hyperlipidemia, hypertension Psychiatric history: no psych history - Past Surgical History Surgical History: cholecystectomy, hysterectomy, knee replacement - Social History Smoking Status: Former smoker Smokeless Tobacco Status: No Alcohol use: occasionally Drug use: none - Family History Sister Hx Family Cancer: Yes (Breast cancer) Internal Medicine - H&P: Meds Amitriptyline [Elavil] 10 mg PO HS 10/30/16 [History] Budesonide/Formoterol 160/4.5 [Symbicort 160/4.5] 2 puff IH BID 10/30/16 [ History] Cholecalciferol (Vitamin D3) [Vitamin D3] 2,000 unit PO BID 10/30/16 [History] Duloxetine HCl [Cymbalta] 60 mg PO DAILY 10/30/16 [History] Gabapentin [Neurontin] 300 mg PO BID 10/30/16 [History] Levothyroxine Sodium [Levoxyl] 75 mcg PO Q48H 10/30/16 [History] Losartan [Cozaar] 25 mg PO DAILY 10/30/16 [History] Omeprazole [PriLOSEC] 40 mg PO DAILY 10/30/16 [History] Aspirin Enteric Coated [Aspirin EC] 325 mg PO BID 10 Days #20 tablet. [Rx] OxyCODONE Immed Rel [Roxicodone 5 MG] 5 mg PO Q6HR PRN 7 Days #28 tablet [Rx] Calcium Carbonate [Calcium] 600 mg PO BID 11/03/17 [History] Donepezil [Aricept] 5 mg PO HS 11/03/17 [History] Levothyroxine [Synthroid] 50 mcg PO Q48H 11/03/17 [History] Lovastatin 40 mg PO HS 11/03/17 [History] Multivitamin [One Daily Multivitamin] 1 tab PO DAILY 11/03/17 [History] 3 Allergy/AdvReac Type Severity Reaction Status Date / Time clarithromycin [From Biaxin] AdvReac Nausea Verified 11/10/17 12:19 prednisone AdvReac Gastrointestinal Verified 11/10/17 12:19 Upset simvastatin AdvReac Cough Verified 11/10/17 12:19 All Systems PM: A 10-system review of systems was performed and is negative for pertinent findings except as documented above in the HPI. - Constitutional Constitutional: as per HPI - Cardiovascular Cardiovascular ROS IM: as per HPI - Respiratory Respiratory: no cough, no dyspnea, no wheezing, no excessive phlegm production - Gastrointestinal Gastrointestinal: no abdominal pain, no diarrhea, no hematemesis, no hematochezia, no melena, no nausea, no vomiting - Musculoskeletal Musculoskeletal ROS IM: as per HPI - Constitutional Vitals: Temp Pulse Resp BP Pulse Ox 98.2 F 97 18 174/72 94 11/10/17 13:13 11/10/17 13:13 11/10/17 13:13 11/10/17 13:13 11/10/17 13:13 General appearance: Present: cooperative, A&O X 3, no acute distress, answers questions appropriately - Respiratory Respiratory exam: Present: CTAB. Absent: accessory muscle use, rales, rhonchi, wheezes - Cardiovascular Cardiovascular exam: Present: RRR, +S1, +S2. Absent: diastolic murmur, gallop, rubs, systolic murmur - GI/Abdominal GI/Abdominal exam: Present: normal bowel sounds, soft, no peritoneal signs. Absent: distended, tenderness - Extremities Exam Extremities exam: Present: normal capillary refill, tenderness, warm, radial pulses palpable and symmetrical Additional comments: Left knee swollen s/p Total knee replacement. Surgical incision is mildly erythematous, well approximated. No drainage or s/sx infection noted. ROM is limited as expected post op. Internal Med - H&P Results - Labs CBC & Chem 7: 11/10/17 04:02 11/10/17 04:02 - Impressions Impressions Lumbar Spine MRI 11/10/17 06:51 IMPRESSION: Multilevel degenerative spondylosis throughout the lumbar spine without high-grade lumbar spinal canal stenosis. Mild multifactorial spinal canal stenosis at L3-L4. Moderate right L3-L4 neural foraminal stenosis. Additional mild multilevel bilateral neural foraminal stenosis, as detailed above. D/ / 11/10/2017 11:23:05 Kalyan Taylor MD / [email or web address] Interpreting Provider: Kalyan Taylor MD
[2017-11-10] MEDS ORDERED: *HR* FentaNYL (PF) 100 MCG/2 ML VIAL IVP SCH (16:00)
[2017-11-10] MEDS ORDERED: *HR* Heparin 5,000 UNIT/ML VIAL SQ SCH (18:00)
--- NOTE | 2017-11-10 18:09 | Orthopedics Progress Note ---
Date of Encounter: 11/10/17 Time of Encounter: 16:00 - Assessment and Plan (1) Status post total left knee replacement Current Visit: Yes Status: Acute POD#6 Left TKR 11/04 Patient wishes to return to facility. We discussed resuming the Tizandine she takes routinely at home, along with short course of NSAIDS x 7 days for further pain management, and continuing her Oxycodone. Incision healing appropriately, no concern for infection at this time. New Opsite placed. Zipline dressing intact. Discussed with social work, and patient will require new authorization for ECF return. PT/OT to be continued. DVT prophylaxis with ASA and foot pumps started. Will plan to follow up with patient on as scheduled, unless she remains in hospital until that time. Ortho signing off. Subjective Principal diagnosis: Left Leg Pain x 8 hours Interval history: Patient is POD#7 Left TKR, she was discharged to ECF on 11/06/17 in stable condition. She was sent to ED this AM due to uncontrollable lower back pain and left leg pain. gave orthopedic recommendations in ED. In ED, Doppler obtained - Negative for DVT. MRI of lumbar spine: No acute pathology. Now, patients states she feels better, pain minimal. She is resting comfortably in bed, pain controlled with Oxycodone and Toradol. Left knee: Ecchymosis noted to incision, with few friction blisters along Zipline dressing. No drainage or bleeding noted. Incision well approximated. No concern for infection. Mild swelling noted to knee and lower leg. ROM intact but minimal, as expected. NV intact distally. Patient wishes to return to facility. We discussed resuming the Tizandine she takes routinely at home, along with short course of NSAIDS x 7 days for further pain management, and continuing her Oxycodone. Discussed with social work, and patient will require new authorization for ECF return. PT/OT to be continued. DVT prophylaxis with ASA and foot pumps started. Objective Vital signs: Vital Signs Temp Pulse Resp BP Pulse Ox 11/10/17 16:49 100.5 F H 104 14 128/62 93 11/10/17 13:13 98.2 F 97 18 174/72 94 Incision: healing, clean and dry - Labs CBC & BMP: 11/10/17 04:02 11/10/17 04:02 Labs: Abnormal lab results WBC 11.9 K/mcL (4.3-11.1) H 11/10/17 04:02 RBC 3.43 M/mcL (3.82-4.97) L 11/10/17 04:02 Hgb 10.3 g/dL (11.5-15.4) L 11/10/17 04:02 Hct 31.7 % (35.3-44.9) L 11/10/17 04:02 Neutrophils # 9.8 K/mcL (1.6-8.9) H 11/10/17 04:02 PT 12.4 Seconds (9.4-12.1) H 11/10/17 04:02 Sodium 133 mEq/L (136-145) L 11/10/17 04:02 Glucose 158 mg/dL (70-105) H 11/10/17 04:02 Calculated Osmolality 278 (280-300) L 11/10/17 04:02 Consult Discharge Plan - Plan Referrals: Jorge Luis Sharpe DO [Primary Care Provider] -
[2017-11-10 18:50] LABS: Bilirubin,Urine Negative (Negative); Blood,Urine Negative (Negative); Clarity,Urine Cloudy (Clear); Color,Urine Yellow (Yellow); Glucose,Urine (UA) Normal (Normal); Ketones,Urine Negative (Negative); Leukocyte Esterase,Urine Negative (Negative); Nitrite,Urine Negative (Negative); Protein,Urine Negative (Neg-Trace); Specific Gravity,Urine 1.017 (1.010-1.025); Urobilinogen,Urine Normal (Normal)
[2017-11-10 18:53] LABS: Bacteria,Urine None Seen per hpf (None-Few); Hyaline Casts,Urine None Seen per lpf (None-Few); Squamous Epithelial Cell,Urine Many per lpf (None-Few); WBC,Urine 0-3 per hpf (0-3)
[2017-11-10] MEDS: Budesonide/Formoterol 160/4.5 MDI IH SCH (19:45)
[2017-11-10] MEDS: Gabapentin 300 MG CAPSULE PO SCH (21:34)
[2017-11-10] MEDS: Aspirin Enteric Coated 325 MG Tablet PO SCH (21:34)
[2017-11-10] MEDS: Cholecalciferol (D-3) 1,000 UNIT TABLET PO SCH (21:42)
[2017-11-11 05:40] LABS: Hematocrit 29.9 % (35.3-44.9); Hemoglobin 9.4 g/dL (11.5-15.4); Mean Corpuscular HGB Conc 31.4 g/dL (31.6-35.5); Mean Corpuscular Hemoglobin 29.6 pg (28.0-33.3); Mean Platelet Volume 10.3 fL (9.4-12.4); Platelet Count 401 K/mcL (140-400); Red Blood Count 3.18 M/mcL (3.82-4.97)
[2017-11-11 05:55] LABS: BUN/Creatinine Ratio 15 (6-26); Blood Urea Nitrogen 11 mg/dL (8-23); Calcium 8.7 mg/dL (8.6-10.3); Carbon Dioxide 29 mEq/L (23-29); Chloride 103 mEq/L (98-107); Glucose 107 mg/dL (70-105); Osmolality,Calculated 288 (280-300); Potassium 3.7 mEq/L (3.5-5.1); Sodium 139 mEq/L (136-145); eGFR For African Americans > 60 (> 60); eGFR For Non-African Americans > 60 (> 60)
[2017-11-11] MEDS ORDERED: *HR* Enoxaparin 30 MG/0.3 ML SYRINGE SQ SCH (06:00)
[2017-11-11] MEDS: Budesonide/Formoterol 160/4.5 MDI IH SCH ×2 (07:44→19:34)
[2017-11-11] MEDS: Cholecalciferol (D-3) 1,000 UNIT TABLET PO SCH (09:41)
[2017-11-11] MEDS: Gabapentin 300 MG CAPSULE PO SCH ×2 (09:41→20:01)
[2017-11-11] MEDS: Multivit/Ca/Min/Fe/FA 1 TAB TABLET PO SCH (09:41)
[2017-11-11] MEDS: Aspirin Enteric Coated 325 MG Tablet PO SCH ×2 (09:41→20:01)
[2017-11-11] MEDS: *HR* OxyCODONE/APAP 5/325 TABLET PO PRN ×2 (09:41→20:00)
--- NOTE | 2017-11-11 19:36 | Internal Med Progress Note ---
Date of Encounter: 11/11/17 Time of Encounter: 12:30 - Assessment and plan (1) Intractable low back pain Current Visit: Yes Status: Acute Assessment and plan: Presently doing well we will consult PT OT for therapy. Continue with oxycodone and [place] Toradol as needed for pain (2) Status post total left knee replacement Current Visit: Yes Status: Acute Assessment and plan: Patient was seen by orthopedics -POD #6 Left TKR 11/04 Ortho Evra recommending resuming Tizandine along with short course of NSAIDs 7 days for further pain management and to continue oxycodone. Ortho Evra replaced [facility] human services manager have been consulted patient will require new authorization for ECF return PT OT has been consulted Orthopedics recommending aspirin and foot pumps DVT prophylaxis/ (3) COPD (chronic obstructive pulmonary disease) Current Visit: Yes Status: Chronic Assessment and plan: Presently controlled no wheezing continue with bronchodilators and oxygen as needed Qualifiers: COPD type: unspecified COPD Qualified Code(s): J44.9 - Chronic obstructive pulmonary disease, unspecified (4) HLD (hyperlipidemia) Current Visit: Yes Status: Chronic Assessment and plan: Continuous statin Qualifiers: Hyperlipidemia type: unspecified Qualified Code(s): E78.5 - Hyperlipidemia , unspecified (5) HTN (hypertension) Current Visit: Yes Status: Chronic Assessment and plan: Presently controlled will continue with home medications Qualifiers: Hypertension type: unspecified Qualified Code(s): I10 - Essential (primary ) hypertension (6) Hypothyroidism Current Visit: Yes Status: Chronic Assessment and plan: Continue with Synthroid Qualifiers: Hypothyroidism type: unspecified Qualified Code(s): E03.9 - Hypothyroidism , unspecified (7) DVT prophylaxis Current Visit: Yes Status: Acute Assessment and plan: Aspirin and foot pumps per Ortho recommendations - Constitutional Vitals: Temp Pulse Resp BP Pulse Ox 97.8 F 105 18 149/72 96 11/11/17 18:47 11/11/17 18:47 11/11/17 18:47 11/11/17 18:47 11/11/17 18:47 General appearance: Present: cooperative, A&O X 3, no acute distress, answers questions appropriately - Head Head exam: Present: atraumatic, normocephalic - Eye Eye exam: Present: PERRL, conjuntiva pink, sclera anicteric Pupils: Present: PERRL - Neck Neck exam general surgery: Present: supple, trachea midline. Absent: lymphadenopathy - Respiratory Respiratory exam: Present: CTAB. Absent: accessory muscle use, rales, rhonchi, wheezes - Cardiovascular Cardiovascular exam: Present: RRR, +S1, +S2. Absent: diastolic murmur, gallop, rubs, systolic murmur - GI/Abdominal GI/Abdominal exam: Present: normal bowel sounds, soft, no peritoneal signs. Absent: distended, tenderness - Extremities Exam Extremities exam: Present: warm, radial pulses palpable and symmetrical. Absent : calf tenderness, cyanotic, pedal edema - Neurological Exam Neurological exam: Present: CN II-XII intact, oriented X3, no focal deficits. Absent: pronater drift, facial droop, speech deficit - Skin Skin exam: Present: dry, intact Internal Medicine: Result - Labs CBC & Chem 7: 11/11/17 04:00 11/11/17 04:00 Labs: Short CBC 11/11/17 Range/Units 04:00 WBC 8.0 (4.3-11.1) K/mcL Hgb 9.4 L (11.5-15.4) g/dL Hct 29.9 L (35.3-44.9) % Plt Count 401 H (140-400) K/mcL BMP 11/11/17 04:00 Sodium 139 Potassium 3.7 Chloride 103 Carbon Dioxide 29 BUN 11 Creatinine 0.74 Glucose 107 H Calcium 8.7 - ABG Interpretation ABG results: PT/INR, D-dimer PT 12.4 Seconds (9.4-12.1) H 11/10/17 04:02 Consult Discharge Plan - Plan Referrals: Jorge Luis Sharpe DO [Primary Care Provider] - Prescriptions: Tizanidine HCl [Zanaflex] 4 mg PO TID PRN 3 Days #9 cap PRN Reason: Pain
[2017-11-12] MEDS: Aspirin Enteric Coated 325 MG Tablet PO SCH (09:18)
[2017-11-12] MEDS: Multivit/Ca/Min/Fe/FA 1 TAB TABLET PO SCH (09:18)
[2017-11-12] MEDS: *HR* OxyCODONE/APAP 5/325 TABLET PO PRN ×2 (09:19→16:43)
[2017-11-12] MEDS: Gabapentin 300 MG CAPSULE PO SCH (09:19)
[2017-11-12] MEDS: Cholecalciferol (D-3) 1,000 UNIT TABLET PO SCH (09:19)
[2017-11-12] MEDS: Budesonide/Formoterol 160/4.5 MDI IH SCH (10:54)
--- NOTE | 2017-11-12 10:56 | Internal Med Progress Note ---
Date of Encounter: 11/12/17 Time of Encounter: 10:55 - Assessment and plan (1) Intractable low back pain Current Visit: Yes Status: Acute (2) Status post total left knee replacement Current Visit: Yes Status: Acute (3) COPD (chronic obstructive pulmonary disease) Current Visit: Yes Status: Chronic Qualifiers: COPD type: unspecified COPD Qualified Code(s): J44.9 - Chronic obstructive pulmonary disease, unspecified (4) HLD (hyperlipidemia) Current Visit: Yes Status: Chronic Qualifiers: Hyperlipidemia type: unspecified Qualified Code(s): E78.5 - Hyperlipidemia , unspecified (5) HTN (hypertension) Current Visit: Yes Status: Chronic Qualifiers: Hypertension type: unspecified Qualified Code(s): I10 - Essential (primary ) hypertension (6) Hypothyroidism Current Visit: Yes Status: Chronic Qualifiers: Hypothyroidism type: unspecified Qualified Code(s): E03.9 - Hypothyroidism , unspecified (7) DVT prophylaxis Current Visit: Yes Status: Acute - Constitutional Vitals: Temp Pulse Resp BP Pulse Ox 97.7 F 88 14 100/61 92 11/12/17 06:34 11/12/17 06:34 11/12/17 06:34 11/12/17 06:34 11/12/17 06:34 General appearance: Present: cooperative, A&O X 3, no acute distress, answers questions appropriately - Head Head exam: Present: atraumatic, normocephalic - Eye Eye exam: Present: PERRL, conjuntiva pink, sclera anicteric Pupils: Present: PERRL - Neck Neck exam general surgery: Present: supple, trachea midline. Absent: lymphadenopathy - Respiratory Respiratory exam: Present: CTAB. Absent: accessory muscle use, rales, rhonchi, wheezes - Cardiovascular Cardiovascular exam: Present: RRR, +S1, +S2. Absent: diastolic murmur, gallop, rubs, systolic murmur - GI/Abdominal GI/Abdominal exam: Present: normal bowel sounds, soft, no peritoneal signs. Absent: distended, tenderness - Extremities Exam Extremities exam: Present: warm, radial pulses palpable and symmetrical. Absent : calf tenderness, cyanotic, pedal edema - Neurological Exam Neurological exam: Present: CN II-XII intact, oriented X3, no focal deficits. Absent: pronater drift, facial droop, speech deficit - Skin Skin exam: Present: dry, intact Internal Medicine: Result - Labs CBC & Chem 7: 11/11/17 04:00 11/11/17 04:00 - ABG Interpretation ABG results: PT/INR, D-dimer PT 12.4 Seconds (9.4-12.1) H 11/10/17 04:02 Consult Discharge Plan - Plan Referrals: Jorge Luis Sharpe DO [Primary Care Provider] - Prescriptions: Tizanidine HCl [Zanaflex] 4 mg PO TID PRN 3 Days #9 cap PRN Reason: Pain
[2017-11-12 11:04] VITALS: BP 143/74
--- NOTE | 2017-11-12 16:31 | Discharge Summary ---
Date of Encounter: 11/12/17 Time of Encounter: 16:25 - Discharge Diagnosis (1) Intractable low back pain Priority: Secondary Status: Acute Comments: Zanaflex for muscle spasms-PT and OT MRI L-spine shows multilevel degenerative spondylosis, moderate L3-4 neuroforaminal stenosis. (2) Status post total left knee replacement Priority: Secondary Status: Acute Comments: Follow-up with orthopedics as outpatient (3) COPD (chronic obstructive pulmonary disease) Priority: Secondary Status: Chronic Qualifiers: COPD type: unspecified COPD Qualified Code(s): J44.9 - Chronic obstructive pulmonary disease, unspecified (4) HLD (hyperlipidemia) Priority: Secondary Status: Chronic Comments: Continue with home medications Qualifiers: Hyperlipidemia type: unspecified Qualified Code(s): E78.5 - Hyperlipidemia , unspecified (5) HTN (hypertension) Priority: Secondary Status: Chronic Qualifiers: Hypertension type: unspecified Qualified Code(s): I10 - Essential (primary ) hypertension (6) Hypothyroidism Priority: Secondary Status: Chronic Comments: Continue home medications Qualifiers: Hypothyroidism type: unspecified Qualified Code(s): E03.9 - Hypothyroidism , unspecified (7) DVT prophylaxis Priority: Secondary Status: Acute Comments: Orthopedics recommending aspirin and foot pumps (8) Left leg pain Priority: Primary Status: Acute Comments: Patient originally presented with left lateral calf and left popliteal pain as well as swelling and tenderness. She recently underwent a left total knee replacement per Dr. Chapman. Doppler ultrasound of left leg showed no DVT orthopedics evaluated patient-dressings were changed per orthopedics advising continue with pain control PTOT evaluation for functional capacity return to [id number] with Dr Chapman 11/13/2017 Hospital course: Ms. Ramos is a 77 year old female - Time Spent with Patient Total time spent providing and/or coordinating discharge services: - Discharge Medications Prescriptions: OxyCODONE/APAP 5/325 [Percocet 5/325 MG] 1 each PO Q6HR PRN 7 Days #28 tablet PRN Reason: Moderate Pain Tizanidine HCl [Zanaflex] 4 mg PO TID PRN 3 Days #9 cap PRN Reason: Pain Tizanidine HCl [Zanaflex] 4 mg PO TID PRN 3 Days #9 cap PRN Reason: Muscle Spasm Home Medications: Amitriptyline [Elavil] 10 mg PO HS 10/30/16 [History] Budesonide/Formoterol 160/4.5 [Symbicort 160/4.5] 2 puff IH BID 10/30/16 [ History] Cholecalciferol (Vitamin D3) [Vitamin D3] 2,000 unit PO BID 10/30/16 [History] Duloxetine HCl [Cymbalta] 60 mg PO DAILY 10/30/16 [History] Gabapentin [Neurontin] 300 mg PO BID 10/30/16 [History] Levothyroxine Sodium [Levoxyl] 75 mcg PO Q48H 10/30/16 [History] Losartan [Cozaar] 25 mg PO DAILY 10/30/16 [History] Omeprazole [PriLOSEC] 40 mg PO DAILY 10/30/16 [History] Aspirin Enteric Coated [Aspirin EC] 325 mg PO BID 10 Days #20 tablet. [Rx] Calcium Carbonate [Calcium] 600 mg PO BID 11/03/17 [History] Donepezil [Aricept] 5 mg PO HS 11/03/17 [History] Levothyroxine [Synthroid] 50 mcg PO Q48H 11/03/17 [History] Lovastatin 40 mg PO HS 11/03/17 [History] Multivitamin [One Daily Multivitamin] 1 tab PO DAILY 11/03/17 [History] Tizanidine HCl [Zanaflex] 4 mg PO TID PRN 3 Days #9 cap 11/10/17 [Rx] Aspirin Enteric Coated [Aspirin EC] 325 mg PO BID tablet. 11/12/17 [Rx] OxyCODONE/APAP 5/325 [Percocet 5/325 MG] 1 each PO Q6HR PRN 7 Days #28 tablet [Rx] Tizanidine HCl [Zanaflex] 4 mg PO TID PRN 3 Days #9 cap 11/12/17 [Rx] Allergies/Adverse Reactions: 3 Allergy/AdvReac Type Severity Reaction Status Date / Time clarithromycin [From Biaxin] AdvReac Nausea Verified 11/10/17 12:19 prednisone AdvReac Gastrointestinal Verified 11/10/17 12:19 Upset simvastatin AdvReac Cough Verified 11/10/17 12:19 Date of admission: 11/10/17 12:14 Primary care physician: Jorge Luis Sharpe DO Consults: 11/10/17 14:01 Consult to Occupational Therapy [CONS] Routine Comment: Evaluate, develop and implement POC Reason for Consult: Assess physical capacity; return to rehab Does patient have active BEDREST order?: No Is patient medically & hemodynamically stable?: No Patient assessed for mobility or mobilized this visit?: Yes Consult to Physical Therapy [CONS] Routine Comment: Evaluate, develop and implement POC Reason for Consult: Assess physical capacity; return to rehab Does patient have active BEDREST order?: No Is patient medically & hemodynamically stable?: No Patient assessed for mobility or mobilized this visit?: Yes 11/11/17 08:10 Consult to Electromyographic Technician [CONS] Routine Reason for SW Consult: return to [facility] - Constitutional Vitals: Temp Pulse Resp BP Pulse Ox 97.7 F 87 20 143/74 93 11/12/17 11:03 11/12/17 11:03 11/12/17 11:03 11/12/17 11:04 11/12/17 11:03 General appearance: Present: cooperative, A&O X 3, no acute distress, answers questions appropriately - Patient Status Disposition: Transfer SNF Condition: Fair - Discharge Instructions Follow Up With: Jorge Luis Sharpe DO [Primary Care Provider] - Franki Chapman MD [Partnered Physician] - - Diet and Activity Activity: as per physical therapy Diet: advance to your usual diet
--- NOTE | 2017-11-12 16:50 | Physician Discharge Referral ---
ExtendedCare Referral Info Transfer To: [facility] Provider in Charge: Lizette Nguyen Provider in Charge after Transfer: PCP Institutional Level of Care: Skilled - Diagnosis (1) Intractable low back pain Priority: Primary Status: Acute (2) Status post total left knee replacement Priority: Primary Status: Acute (3) COPD (chronic obstructive pulmonary disease) Priority: Secondary Status: Chronic (4) HLD (hyperlipidemia) Priority: Secondary Status: Chronic (5) HTN (hypertension) Priority: Primary Status: Chronic (6) Hypothyroidism Priority: Secondary Status: Chronic (7) DVT prophylaxis Priority: Secondary Status: Acute Prognosis: Good - Transfer Medications Prescriptions: OxyCODONE Immed Rel [Roxicodone 5 MG] 5 mg PO Q6HR PRN 7 Days #28 tablet PRN Reason: Severe Pain Tizanidine HCl [Zanaflex] 4 mg PO TID PRN 3 Days #9 cap PRN Reason: Pain Tizanidine HCl [Zanaflex] 4 mg PO TID PRN 3 Days #9 cap PRN Reason: Muscle Spasm Home Medications: Amitriptyline [Elavil] 10 mg PO HS 10/30/16 [History] Budesonide/Formoterol 160/4.5 [Symbicort 160/4.5] 2 puff IH BID 10/30/16 [ History] Cholecalciferol (Vitamin D3) [Vitamin D3] 2,000 unit PO BID 10/30/16 [History] Duloxetine HCl [Cymbalta] 60 mg PO DAILY 10/30/16 [History] Gabapentin [Neurontin] 300 mg PO BID 10/30/16 [History] Levothyroxine Sodium [Levoxyl] 75 mcg PO Q48H 10/30/16 [History] Losartan [Cozaar] 25 mg PO DAILY 10/30/16 [History] Omeprazole [PriLOSEC] 40 mg PO DAILY 10/30/16 [History] Aspirin Enteric Coated [Aspirin EC] 325 mg PO BID 10 Days #20 tablet. [Rx] Calcium Carbonate [Calcium] 600 mg PO BID 11/03/17 [History] Donepezil [Aricept] 5 mg PO HS 11/03/17 [History] Levothyroxine [Synthroid] 50 mcg PO Q48H 11/03/17 [History] Lovastatin 40 mg PO HS 11/03/17 [History] Multivitamin [One Daily Multivitamin] 1 tab PO DAILY 11/03/17 [History] Tizanidine HCl [Zanaflex] 4 mg PO TID PRN 3 Days #9 cap 11/10/17 [Rx] Aspirin Enteric Coated [Aspirin EC] 325 mg PO BID tablet. 11/12/17 [Rx] OxyCODONE Immed Rel [Roxicodone 5 MG] 5 mg PO Q6HR PRN 7 Days #28 tablet [Rx] Tizanidine HCl [Zanaflex] 4 mg PO TID PRN 3 Days #9 cap 11/12/17 [Rx] Allergies/Adverse Reactions: 3 Allergy/AdvReac Type Severity Reaction Status Date / Time clarithromycin [From Biaxin] AdvReac Nausea Verified 11/10/17 12:19 prednisone AdvReac Gastrointestinal Verified 11/10/17 12:19 Upset simvastatin AdvReac Cough Verified 11/10/17 12:19 - Respiratory Orders Smoking Cessation: Smoking cessation has been advised. For more information, call the [place] Tobacco Quit Line at 9-125-DEBQ-NOW. - Advance Directives Code Status: DNR-Arrest - Rehabiliation Orders Rehab Potential: Good Rehab Orders: Evaluation for Physical Therapy, Evaluation for Occupational Therapy - Treatments Skin tear care topically daily PRN per policy - Diet Orders Regular CERTIFICATION: I certify that the transfer of the above named patient to an Extended Care Facility is necessary for the continuing treatment of the diagnosis listed. The above information is true and accurate reflection of patient's current condition. Confidential - Redisclosure prohibited without a patient's written consent.
== END 2017-11-12 18:13 ==
LOC: 3BNU 03:28 → EMEROO 03:28 → 3BNU 12:57
PROVIDERS: ADMIT Internal Medicine; ATTEND Registered Nurse